=== PATIENT | male | born 1950 | race Caucasian/White ===

== ENCOUNTER 2020-09-17 12:26 | Outpatient (REF) | payer MEDICARE, SELFPAY ==
[2020-09-17 14:02] LABS: Glucose Urine UA NEG (NEG); Leukocyte Esterase Urine NEG (NEG); Nitrite Urine NEG (NEG); PH 6.5 (5.0-8.0); Specific Gravity - Urine <= 1.005 (1.005-1.025); Urine Blood NEG (NEG); Urine Ketones NEG (NEG); Urine Protein NEG (NEG-TRACE)
[2020-09-17 14:05] LABS: Creatinine Urine 71.71 mg/dL; Microalbum/Creatinine Ratio Ur 112.9 ug/mg cr
[2020-09-17 14:06] LABS: Appearance Urine CLEAR; Color Urine YELLOW
[2020-09-17 14:18] LABS: Alanine Aminotransferase 10 U/L (0-40); Albumin Level 4.4 g/dL (3.5-5.0); Alkaline Phosphatase 69 U/L (39-117); Anion Gap 12 (12-20); Aspartate Amino Transferase 16 U/L (5-37); Bilirubin Total 0.7 mg/dL (0.0-1.0); Blood Urea Nitrogen 17 mg/dL (9-16); Calcium 9.6 mg/dL (8.4-10.2); Carbon Dioxide 29 mmol/L (22-29); Chloride 99 mmol/L (96-108); Cholesterol 208 mg/dL; Estimated Glomerular Filt Rate > 60; Glucose Fasting 110 mg/dL (60-99); HDL Cholesterol 60 mg/dL; LDL Cholesterol Calculated 125 mg/dl; Potassium 5.3 mmol/L (3.3-5.1); Sodium 135 mmol/L (135-145); Total Protein 7.6 g/dL (6.5-8.0); Triglycerides 115 mg/dL
[2020-09-17 14:26] LABS: Prostate Specific Antigen Scr 0.24 ng/mL (<0.05-4.0); TSH reflex Free T4 2.29 uIU/mL (0.32-4.0)
== END 2020-09-17 12:27 | disposition home or self-care (01) ==
LOC: HO.WFDLDS 12:26
PROVIDERS: Visit Provider Family Medicine
DX: Z00.00 Encounter for general adult medical examination without abnormal findings (principal); Z12.5 Encounter for screening for malignant neoplasm of prostate; I10 Essential (primary) hypertension
CPT/HCPCS: 36415; 80053; 80061; 81003; 82043; 84153; 84443

== ENCOUNTER 2021-07-03 12:27 | Outpatient (REF) | payer MEDICARE, SELFPAY ==
[2021-07-03 14:01] LABS: MANUAL DIFF FLAG NO
[2021-07-03 14:05] LABS: Basophils Absolute Auto 0.1 X10*3/uL (0.0-0.2); Basophils Percent Auto 0.8 % (0-2); Eosinophils Absolute Auto 0.3 X10*3/uL (0.0-0.4); Eosinophils Percent Auto 4.2 % (0-4); Hematocrit 35.4 % (42.0-52.0); Hemoglobin 11.7 g/dl (14.0-18.0); Imm Gran Abs Auto 0.04 X10*3/uL (0.00-0.03); Imm Gran Pct Auto 0.5 % (0.0-0.4); Lymphocytes Absolute Auto 1.8 X10*3/uL (1.2-4.9); Lymphocytes Percent Auto 24.4 % (20-40); Mean Corpuscular HGB Conc 33.1 g/dl (31.0-36.0); Mean Corpuscular Hemoglobin 29.7 pg (27.0-33.0); Mean Corpuscular Volume 89.8 fL (80.0-98.0); Mean Platelet Volume 9.8 fL (9.4-12.4); Monocytes Absolute Auto 0.6 X10*3/uL (0.1-1.2); Monocytes Percent Auto 7.9 % (2-11); Neutrophils Absolute Auto 4.6 x10*3/uL (2.0-8.3); Neutrophils Percent Auto 62.2 % (45-73); Platelet Count 270 X10*3/uL (160-400); Red Blood Count 3.94 X10*6/uL (4.60-5.80); White Blood Count 7.4 X10*3/uL (4.8-10.8)
[2021-07-03 14:25] LABS: Alanine Aminotransferase 10 U/L (0-40); Albumin Level 3.7 g/dL (3.5-5.0); Alkaline Phosphatase 62 U/L (39-117); Anion Gap 12 (12-20); Aspartate Amino Transferase 13 U/L (5-37); Bilirubin Total 0.5 mg/dL (0.0-1.0); Blood Urea Nitrogen 17 mg/dL (9-16); Calcium 9.7 mg/dL (8.4-10.2); Carbon Dioxide 29 mmol/L (22-29); Chloride 102 mmol/L (96-108); Estimated Glomerular Filt Rate > 60; Glucose Random 140 mg/dL (60-115); Potassium 4.8 mmol/L (3.3-5.1); Rheumatoid Factor < 15.0 IU/mL (<15.0); Sodium 138 mmol/L (135-145); Total Protein 6.9 g/dL (6.5-8.0)
[2021-07-03 14:42] LABS: Erythrocyte Sedimentation Rate 67 MM/HR (0-15)
[2021-07-05 11:40] LABS: CRP High Sensitivity >10.0 mg/L
[2021-07-07 11:06] LABS: Cyclic Citrullinated Peptide 30 UNITS
[2021-07-08 09:52] LABS: Anti Nuclear Antibody Screen POSITIVE (NEGATIVE)
== END 2021-07-03 12:28 | disposition home or self-care (01) ==
LOC: HO.WFDLDS 12:27
PROVIDERS: Visit Provider Family Medicine
DX: Z00.00 Encounter for general adult medical examination without abnormal findings (principal); M79.10 Myalgia, unspecified site
CPT/HCPCS: 36415; 80053; 82550; 84443; 85025; 85652; 86038; 86039; 86141; 86200; 86431

== ENCOUNTER 2021-10-06 13:11 | Outpatient (REF) | payer MEDICARE, SELFPAY ==
--- NOTE | ~2021-10-06 | US_ITS ---
EXAMINATION: US VENOUS ULTRASOUND WITH DOPPLER LOWER EXTREMITY, BILATERAL CLINICAL INFORMATION: Pain. COMPARISON: None TECHNIQUE: Ultrasound of the deep veins is performed from the hip to the calf with compression sonography and color and pulse Doppler assessment. Spectral analysis with color-flow imaging is performed. FINDINGS: RIGHT: There is normal venous compression and respiratory variation and augmented flow. The visualized common femoral vein, superficial femoral vein, profunda femoral vein, popliteal vein, and the trifurcation region shows no evidence of deep venous thrombosis. There is no significant popliteal fossa cyst. LEFT: There is normal venous compression and respiratory variation and augmented flow. The visualized common femoral vein, superficial femoral vein, profunda femoral vein, popliteal vein, and the trifurcation region shows no evidence of deep venous thrombosis. There is no significant popliteal fossa cyst. If the patient's symptoms persist, followup ultrasound in 5 days 7 days might be of value to exclude proximal propagation from a non-visualized calf vein. US/US venous duplex LE BI IMPRESSION: No DVT demonstrated in the bilateral lower extremities.
== END 2021-10-06 13:12 | disposition home or self-care (01) ==
LOC: HO.US 13:11
PROVIDERS: PCP Family Medicine; Visit Provider Nurse Practitioner Family
DX: M79.661 Pain in right lower leg (principal); M79.662 Pain in left lower leg; M54.50 Low back pain, unspecified; R79.82 Elevated C-reactive protein (CRP); R25.1 Tremor, unspecified; Z79.899 Other long term (current) drug therapy
CPT/HCPCS: 93970; 99202

== ENCOUNTER 2021-12-31 12:24 | Outpatient (REF) | payer MEDICARE, SELFPAY ==
[2021-12-31 14:55] LABS: Rheumatoid Factor < 15.0 IU/mL (<15.0)
[2021-12-31 15:00] LABS: Erythrocyte Sedimentation Rate 66 MM/HR (0-15)
[2022-01-02 15:07] LABS: CRP High Sensitivity >10.0 mg/L
[2022-01-05 12:57] LABS: Cyclic Citrullinated Peptide 20 UNITS
== END 2021-12-31 12:25 | disposition home or self-care (01) ==
LOC: HO.WFDLDS 12:24
PROVIDERS: Visit Provider Family Medicine
DX: M79.10 Myalgia, unspecified site (principal)
CPT/HCPCS: 36415; 85652; 86141; 86200; 86431

== ENCOUNTER 2022-03-05 08:55 | Outpatient (REF) | payer MEDICARE, SELFPAY ==
[2022-03-05 11:14] LABS: MANUAL DIFF FLAG NO
[2022-03-05 11:38] LABS: Basophils Absolute Auto 0.1 X10*3/uL (0.0-0.2); Basophils Percent Auto 0.7 % (0-2); Eosinophils Absolute Auto 0.5 X10*3/uL (0.0-0.4); Eosinophils Percent Auto 5.8 % (0-4); Hematocrit 31.9 % (42.0-52.0); Hemoglobin 10.7 g/dl (14.0-18.0); Imm Gran Abs Auto 0.03 X10*3/uL (0.00-0.03); Imm Gran Pct Auto 0.4 % (0.0-0.4); Lymphocytes Absolute Auto 1.5 X10*3/uL (1.2-4.9); Lymphocytes Percent Auto 18.6 % (20-40); Mean Corpuscular HGB Conc 33.5 g/dl (31.0-36.0); Mean Corpuscular Hemoglobin 27.9 pg (27.0-33.0); Mean Corpuscular Volume 83.3 fL (80.0-98.0); Mean Platelet Volume 9.3 fL (9.4-12.4); Monocytes Absolute Auto 0.8 X10*3/uL (0.1-1.2); Monocytes Percent Auto 9.5 % (2-11); Neutrophils Absolute Auto 5.4 x10*3/uL (2.0-8.3); Platelet Count 317 X10*3/uL (160-400); Red Blood Count 3.83 X10*6/uL (4.60-5.80); Red Cell Distribution Width 13.8 % (11.0-16.0); White Blood Count 8.2 X10*3/uL (4.8-10.8)
[2022-03-05 11:39] LABS: Appearance Urine Clear; Color Urine Yellow; Glucose Urine UA Negative (Negative); Leukocyte Esterase Urine Negative (Negative); Nitrite Urine Negative (Negative); PH 6.5 (5.0-9.0); Specific Gravity - Urine 1.015 (1.005-1.025); UMIC TRIGGER UA YES; Urine Blood Negative (Negative); Urine Ketones Negative (Negative); Urine Protein 100 (2+) mg/dL (Neg-Trace)
[2022-03-05 11:48] LABS: Bacteria Urine None Seen (None Seen); Hyaline Casts Urine 0-2 /LPF (0-2); RBC Urine 0-2 /HPF (0-2); Squamous Epithelial Cell Urine 0-2 /HPF (0-2); WBC Urine 0-5 /HPF (0-5)
[2022-03-05 12:16] LABS: Creatinine Urine 62.23 mg/dL
[2022-03-05 14:04] LABS: Alanine Aminotransferase 13 U/L (0-40); Albumin Level 3.8 g/dL (3.5-5.0); Alkaline Phosphatase 62 U/L (39-117); Anion Gap 12 (12-20); Aspartate Amino Transferase 14 U/L (5-37); Bilirubin Total 0.4 mg/dL (0.0-1.0); Blood Urea Nitrogen 21 mg/dL (9-16); Calcium 9.4 mg/dL (8.4-10.2); Carbon Dioxide 29 mmol/L (22-29); Chloride 99 mmol/L (96-108); Cholesterol 190 mg/dL; Estimated Glomerular Filt Rate > 60; Glucose Fasting 107 mg/dL (60-99); HDL Cholesterol 46 mg/dL; LDL Cholesterol Calculated 127 mg/dl; Potassium 4.6 mmol/L (3.3-5.1); Prostate Specific Antigen Scr 0.31 ng/mL (<0.05-4.0); Sodium 135 mmol/L (135-145); TSH reflex Free T4 3.08 uIU/mL (0.32-4.0); Total Protein 6.9 g/dL (6.5-8.0); Triglycerides 86 mg/dL
== END 2022-03-05 08:56 | disposition home or self-care (01) ==
LOC: HO.WFDLDS 08:55
PROVIDERS: Visit Provider Family Medicine
DX: Z00.00 Encounter for general adult medical examination without abnormal findings (principal); Z12.5 Encounter for screening for malignant neoplasm of prostate; I10 Essential (primary) hypertension
CPT/HCPCS: 36415; 80053; 80061; 81001; 82043; 84153; 84443; 85025

== ENCOUNTER 2023-06-04 09:01 | Outpatient (AMB) | payer MEDICARE, SELFPAY ==
[2023-06-04 09:03] VITALS: BP 142/86; PULSE 67; O2SAT 97; BMI 33.4
--- NOTE | 2023-06-04 09:03 | MHC.OFFWIV ---
Intake Vital Signs 06/04/23 09:03 Height 5 ft 9 in Weight 226 lb 8 oz BMI 33.4 BP 142/86 H Blood Pressure Location Rt brachial Position Sitting Pulse 67 Pulse Source Pulse Oximeter Pulse Oximetry (%) 97 Oxygen Delivery Method Room Air Intake Visit Reasons: L Heel pain Intake Note: Pt presents to the office today for left heel pain that started about 2 weeks ago without any known injury. Pt states its a little swollen, and very painful. Patient Tobacco Use Status: Current everyday Tobacco user Allergies Sulfacet-R Allergy (Unknown, Uncoded 06/04/23 09:06) sick stomach HPI L Heel pain HPI Details 73 y/o male presents today with complaints of L heel pain. Swelling on bilateral lower extremities. Pt states pain started about 2x weeks ago without any known injury. [facility] Surgical History History of tonsillectomy Social History (Updated 06/04/23 @ 09:08 by Melissa Plata MA) Housing: Apartment Alcohol intake: current Alcohol intake frequency: a few times a month Alcohol type: beer Patient Tobacco Use Status: Current everyday Tobacco user Tobacco use type: Cigarette Cigarettes Per Day: 30 e-Cigarette/Vaping Use: Never Used Second Hand Smoke Exposure: No service: No Current occupational status: retired Current occupational exposures/hazards: No Review of Systems Const Denies chills, Denies fatigue, Denies fever(s), Denies headache(s) and Denies weakness ENT Denies dizziness and Denies headache(s) Card Denies dyspnea Resp Denies cough, Denies dyspnea, Denies wheezing and Denies other (shortness of breath) Musc Denies numbness and Denies tingling Neuro Denies dizziness, Denies headache(s), Denies numbness, Denies tingling and Denies weakness Psych Denies anxiety and Denies depression Endo Denies fatigue Aller/Immun Denies wheezing Physical Exam Vital Signs: Last Vital Signs Pulse 67 06/04/23 09:03 BP 142/86 H 06/04/23 09:03 Pulse Ox 97 06/04/23 09:03 Oxygen Delivery Method Room Air 06/04/23 09:03 BMI result Body Mass Index 33.4 Const General: well developed; No acute distress Nutritional Appearance: well nourished Orientation/consciousness: patient oriented x3 HEENT Head: Yes normocephalic and Yes atraumatic Eyes General: appearance normal, both eyes and all related structures Pupils: Equal, round and reactive pupils present EOM: EOMs intact bilaterally Resp Effort & Inspection: normal respiratory effort Neuro General: patient oriented x3 and gait normal Cranial nerves: Yes Equal, round and reactive pupils present Extrem Other: LE edema bilateral Psych Affect: normal affect Assessment & Plan Assessment & Plan (1) Cellulitis of left foot: Code(s): L03.116 - Cellulitis of left lower limb Plan: Mild/early?cellulitis?at?left?heel?and?foot Start?cephalexin Elevate?leg Check?x-ray Will?follow-up?in?1?week?to?ensure?healing (2) Foot pain: Code(s): M79.673 - Pain in unspecified foot Plan: As?above (3) Wound of skin: Code(s): T14.8XXA - Other injury of unspecified body region, initial encounter Plan: 1?cm?excoriation/wound?on?posterior?heel Can?use?triple?antibiotic?ointment?and?Band-Aid Treating?surrounding?cellulitis?with?antibiotic?as?above.??Will?follow-up?in?a?week (4) Swelling of lower extremity: Code(s): M79.89 - Other specified soft tissue disorders Plan: Bilateral?lower?extremity?edema Will?give?him?a?short?course?of?Lasix?x5?days Elevate?legs Has?follow-up?for?1?week?due?to?cellulitis?and?we?can?see?how?his?edema?is?at?that?time (5) Acute adjustment disorder: Code(s): F43.20 - Adjustment disorder, unspecified Plan: Patient's???about?6?months?ago.??He?is?appropriately?still?feeling?lonely?and?sad. Offered?referral?to?therapist?but?he?declines?at?this?time.??I?let?him?know?that?he?can?change?his?mind?at?any?time. (6) Pain of left heel: Code(s): M79.672 - Pain in left foot Plan: As?above (7) Nail overgrowth: Code(s): L60.2 - Onychogryphosis Plan: Patient?has?nail?overgrowth?of?all?nails?bilaterally. Had?been?seeing?a?flat optical element maker?for?this?but?he?says?the?flat optical element maker?is?too?far?away?now?and?he?has?limited?transportation. Will?try?to?make?a?referral?closer?to?home Orders: Orders XR foot LT min 3V Today M79.672 - Pain in left foot Referrals Podiatry Referral L60.2 - Onychogryphosis Medications: New furosemide 20 mg PO DAILY 5 tabs 0RF 5 days cephalexin 500 mg PO Q12H 20 caps 0RF 10 days Coding Level of Care Code Est Pt Level 4 (55729) Diagnoses Cellulitis of left foot L03.116 Foot pain M79.673 Wound of skin T14.8XXA Swelling of lower extremity M79.89 Acute adjustment disorder F43.20 Pain of left heel M79.672 Nail overgrowth L60.2
== END 2023-06-04 09:56 | disposition home or self-care (01) ==
PROVIDERS: PCP Family Medicine; Visit Provider Family Medicine
DX: L03.116 Cellulitis of left lower limb (principal); M79.673 Pain in unspecified foot; T14.8XXA Other injury of unspecified body region, initial encounter; M79.89 Other specified soft tissue disorders; F43.20 Adjustment disorder, unspecified; M79.672 Pain in left foot; L60.2 Onychogryphosis
CPT/HCPCS: 99214

== ENCOUNTER 2023-06-04 10:02 | Outpatient (REF) | payer MEDICARE, SELFPAY ==
[2023-06-04 11:29] LABS: MANUAL DIFF FLAG NO
[2023-06-04 11:33] LABS: Basophils Percent Auto 0.5 % (0-2); Eosinophils Absolute Auto 0.5 X10*3/uL (0.0-0.4); Eosinophils Percent Auto 6.5 % (0-4); Hematocrit 36.8 % (42.0-52.0); Hemoglobin 11.8 g/dl (14.0-18.0); Imm Gran Abs Auto 0.01 X10*3/uL (0.00-0.03); Imm Gran Pct Auto 0.1 % (0.0-0.4); Lymphocytes Absolute Auto 1.5 X10*3/uL (1.2-4.9); Lymphocytes Percent Auto 20.7 % (20-40); Mean Corpuscular HGB Conc 32.1 g/dl (31.0-36.0); Mean Corpuscular Hemoglobin 26.9 pg (27.0-33.0); Mean Corpuscular Volume 83.8 fL (80.0-98.0); Mean Platelet Volume 9.6 fL (9.4-12.4); Monocytes Absolute Auto 0.6 X10*3/uL (0.1-1.2); Monocytes Percent Auto 7.6 % (2-11); Neutrophils Absolute Auto 4.8 x10*3/uL (2.0-8.3); Neutrophils Percent Auto 64.6 % (45-73); Platelet Count 278 X10*3/uL (160-400); Red Blood Count 4.39 X10*6/uL (4.60-5.80); Red Cell Distribution Width 14.6 % (11.0-16.0); White Blood Count 7.4 X10*3/uL (4.8-10.8)
[2023-06-04 12:37] LABS: Anion Gap 10 (12-20); Blood Urea Nitrogen 16 mg/dL (9-16); Calcium 9.5 mg/dL (8.4-10.2); Carbon Dioxide 30 mmol/L (22-29); Chloride 104 mmol/L (96-108); Estimated Glomerular Filt Rate > 60; Glucose Random 101 mg/dL (60-115); Sodium 140 mmol/L (135-145); Uric Acid 5.8 mg/dL (3.4-7.0)
== END 2023-06-04 10:03 | disposition home or self-care (01) ==
LOC: HO.WFDLDS 10:02
PROVIDERS: Visit Provider Family Medicine
DX: Z00.00 Encounter for general adult medical examination without abnormal findings (principal); T14.8XXA Other injury of unspecified body region, initial encounter; M79.672 Pain in left foot; X58.XXXA Exposure to other specified factors, initial encounter; Y93.9 Activity, unspecified; Y92.9 Unspecified place or not applicable; Y99.9 Unspecified external cause status
CPT/HCPCS: 36415; 80048; 84550; 85025

== ENCOUNTER 2023-06-11 15:11 | Outpatient (AMB) | payer MEDICARE, SELFPAY ==
--- NOTE | 2023-06-11 15:19 | A.OFFPC_ITS ---
Vital Signs 06/11/23 15:22 Height 5 ft 9 in Weight 227 lb 6 oz BMI 33.6 BP 142/74 H Blood Pressure Location Lt brachial Position Sitting Pulse 62 Pulse Oximetry (%) 98 Oxygen Delivery Method Room Air Intake Visit Reasons: follow up heel infection Intake Note: Patient is here to follow up on heel infection today. Allergies Sulfacet-R Allergy (Unknown, Uncoded 06/04/23 09:06) sick stomach Tobacco use date assessed: 06/11/23 Fall risk assessment: No Falls in past year Last assessed Fall Risk: 06/11/23 Dental Screening Dental Screen Date: 06/11/23 Did you have a dental visit in the last 12 months?: Yes Did you have a dental problem in the last 6 months where you did not have access to dental care?: No Was dental information given to patient?: Patient declined HPI follow up heel infection HPI Details 73 y/o male presents to f/u heel infecti on. Infection seems to be improving. He does note lower extremity swelling and reports an itch. Blood pressure today elevated at 142/74. He is on atenolol 50mg and losartan 50mg daily. He notes he gets nervous about changing his blood pressure medications and would like to trial dietary changes first. [facility] Surgical History History of tonsillectomy Social History Housing: Apartment Alcohol intake: current Alcohol intake frequency: a few times a month Alcohol type: beer Patient Tobacco Use Status: Current everyday Tobacco user Tobacco use type: Cigarette Cigarettes Per Day: 15 e-Cigarette/Vaping Use: Never Used Second Hand Smoke Exposure: No service: No Current occupational status: retired Current occupational exposures/hazards: No Cognitive needs: No Hearing needs: No Vision needs: Yes (Patient wears glasses) Questionnaire PHQ-9 Over the last 2 weeks, how often have you been bothered by any of the following problems? 1. Little interest or pleasure in doing things: several days 2. Feeling down, depressed, or hopeless: not at all 3. Trouble falling or staying asleep, or sleeping too much: nearly every day 4. Feeling tired or having little energy: several days 5. Poor appetite or overeating: not at all 6. Feeling bad about yourself - or that you are a failure or have let yourself or your family down: not at all 7. Trouble concentrating on things, such as reading the newspaper or watching television: not at all 8. Moving or speaking so slowly that other people could have noticed. Or the opposite - being so fidgety or restless that you have been moving around a lot more than usual: not at all 9. Thoughts that you would be better off or of hurting yourself in some way: not at all Total score: 5 Depression Screening Interpretation: Negative Depression Screening Done: Yes Source: Developed by Drs. Harsh Casey, Corinne Monroe, Al Dennis and colleagues, with an educational oliva from [employer]. Thrive Questionnaire Date Thrive assessed: 06/11/23 I am a: Patient What is your living situation today?: I have a steady place to live Within the past 12 months, did the food you bought not last and you didn't have the money to get more?: Never true Within the past 12 months, did you worry whether your food would run out before you got money to buy more?: Never true Do you have trouble paying for medicines?: No Do you have trouble getting transportation to medical appointments?: No Do you have trouble paying your heating and electricity bill?: No Do you have trouble taking care of your child, family member or friend?: No Do you have trouble with day-to-day activities such as bathing, preparing meals, shopping, managing finances, etc.?: Yes Are you currently unemployed and looking for a job?: No Are you interested in more education?: No THRIVE Score: 0 AUDIT C Alcohol Use Questionnaire (AUDIT-C) 1. How often do you have a drink containing alcohol?: Monthly or less 2. How many drinks containing alcohol do you have on a typical day when you are drinking?: 1 or 2 3. How often do you have six or more drinks on one occasion?: Never Total Score: 1 OMAYRA-7 AMB Questionnaire OMAYRA-7 Date OMAYRA - 7 assessed: 06/11/23 Feeling nervous, anxious, or on edge: 0 = Not at all Not being able to stop or control worryin = Not at all Worrying too much about different things: 0 = Not at all Trouble relaxin = Not at all Being so restless that it is hard to sit still: 0 = Not at all Becoming easily annoyed or irritable: 0 = Not at all Feeling afraid as if something awful might happen: 0 = Not at all Total OMAYRA-7 score (0-4 normal; 5-9 mild; 10-14 moderate; 15-21 severe): 0 Source: Developed by Drs. Harsh Casey, Corinne Monroe, Al Dennis and colleagues, with an educational oliva from [employer]. Review of Systems Const Denies chills, Denies fatigue, Denies fever(s), Denies headache(s) and Denies weakness ENT Denies dizziness and Denies headache(s) Card Denies dyspnea Resp Denies cough, Denies dyspnea, Denies wheezing and Denies other (shortness of breath) Musc Denies numbness and Denies tingling Neuro Denies dizziness, Denies headache(s), Denies numbness, Denies tingling and Denies weakness Psych Denies anxiety and Denies depression Endo Denies fatigue Aller/Immun Denies wheezing Physical exam (Primary Care) Vital Signs: Last Vital Signs Pulse 62 06/11/23 15:22 BP 142/74 H 06/11/23 15:22 Pulse Ox 98 06/11/23 15:22 Oxygen Delivery Method Room Air 06/11/23 15:22 BMI result Body Mass Index 33.6 Tobacco/Smoking Status: Tobacco use Status Tobacco use date assessed 06/11/23 06/11/23 15:25 Patient Tobacco Use Status Current everyday Tobacco 06/11/23 15:21 Tobacco use type Cigarette 06/11/23 15:21 e-Cigarette/Vaping Use Never Used 06/11/23 15:21 PHQ-9: PHQ-9 Score PHQ-9: Total score 5 06/11/23 15:49 Depression Screening Interpretation: Negative Thrive Assessment: Date of Thrive Assessment Date Thrive assessed 06/11/23 06/11/23 15:32 Const General: well developed; No acute distress Nutritional Appearance: well nourished Orientation/consciousness: patient oriented x3 HENMT Head: Yes normocephalic and Yes atraumatic Eyes General: appearance normal, both eyes and all related structures Pupils: Equal, round and reactive pupils present EOM: EOMs intact bilaterally Resp Effort & Inspection: normal respiratory effort Neuro General: patient oriented x3 and gait normal Cranial nerves: Yes Equal, round and reactive pupils present Psych Affect: normal affect Assessment and Plan Assessment & Plan (1) Wound of skin: Code(s): T14.8XXA - Other injury of unspecified body region, initial encounter Plan: Improve X-ray?did?not?show?any?involvement?of?bone?he?will Finish?antibiotic Elevate?feet Dressing?changes Has?a?referral?to?Podiatry (2) Swelling of lower extremity: Code(s): M79.89 - Other specified soft tissue disorders Plan: Still?has?lower?extremity?edema?though?this?has?improved?with?a?short?course?of? furosemide.??Renal?function?is?okay Gave?him?a?script?for?furosemide?10?mg?daily Elevate?leg Avoid?salt/sodium (3) Essential hypertension: Code(s): I10 - Essential (primary) hypertension Plan: Blood?pressure?is?above?goal?of?less?than?140/90. Discussed?adjusting?his?blood?pressure?medications?today?but?patient?is?apprehen sive?about?this/declines?and?w ould?like?to?have?it?rechecked?again?at?his?upcoming?visit?next?week Watch?salt/sodium?in?diet.??No?medication?changes?today. Medications: New hydroxyzine HCl 25 mg PO BEDTIME 30 days 30 tabs 1RF Changed From furosemide 20 mg PO DAILY 5 days 5 tabs 0RF To furosemide 10 mg (1/2 x 20 mg) PO DAILY 30 days PRN 30 tabs 2RF edema Refilled atenolol 50 mg PO DAILY 90 days 90 tabs 2RF Coding Level of Care Code Est Pt Level 4 (70681) Diagnoses Wound of skin T14.8XXA Swelling of lower extremity M79.89 Essential hypertension I10
[2023-06-11 15:22] VITALS: BP 142/74; PULSE 62; O2SAT 98; BMI 33.6
== END 2023-06-11 15:58 | disposition home or self-care (01) ==
PROVIDERS: PCP Family Medicine; Visit Provider Family Medicine
DX: T14.8XXA Other injury of unspecified body region, initial encounter (principal); M79.89 Other specified soft tissue disorders; I10 Essential (primary) hypertension
CPT/HCPCS: 99214

== ENCOUNTER 2023-06-16 11:51 | Outpatient (AMB) | payer MEDICARE, SELFPAY ==
[2023-06-16 12:12] VITALS: BP 132/70; PULSE 63; RESP 14; TEMP 36.4; O2SAT 98; BMI 34.1
--- NOTE | 2023-06-16 12:12 | MHC.PC.OV ---
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 Also f/u heel wound. Labs were drawn 06/04/23. Reviewed labs with pt. Mild anemia. No lipid panel. He reports podiatry has not contacted him yet regarding his heel. Pt notes he continues smoking a pack and a half of cigarettes a day. [facility] Medical History (Updated 06/16/23 @ 12:17 by Odalys Jerome MA) No pertinent past medical history Surgical History History of tonsillectomy Social History Housing: Apartment Alcohol intake: current Alcohol intake frequency: a few times a month Alcohol type: beer Patient Tobacco Use Status: Current everyday Tobacco user Tobacco use type: Cigarette Cigarettes Per Day: 15 e-Cigarette/Vaping Use: Never Used Second Hand Smoke Exposure: No service: No Current occupational status: retired Current occupational exposures/hazards: No Cognitive needs: No Hearing needs: No Vision needs: Yes (Patient wears glasses) Questionnaire Thrive Questionnaire Date Thrive assessed: 06/11/23 AUDIT C Alcohol Use Questionnaire (AUDIT-C) 1. How often do you have a drink containing alcohol?: Monthly or less 2. How many drinks containing alcohol do you have on a typical day when you are drinking?: 1 or 2 3. How often do you have six or more drinks on one occasion?: Never Total Score: 1 OMAYRA-7 AMB Questionnaire OMAYRA-7 Date OMAYRA - 7 assessed: 06/11/23 Source: Developed by Drs. Harsh Casey, Corinne Monroe, Al Dennis and colleagues, with an educational oliva from [employer]. Review of Systems Const Denies chills, Denies fatigue, Denies fever(s), Denies headache(s) and Denies weakness Eyes Denies change in vision ENT Denies dizziness, Denies headache(s), Denies hearing loss, Denies nasal congestion, Denies sinus pain, Denies sinus pressure and Denies sore throat Card Denies chest pain, Denies lightheadedness, Denies dyspnea and Denies other (palpitations) Resp Denies cough, Denies dyspnea and Denies wheezing GI Denies abdominal pain, Denies melena, Denies hematochezia, Denies change in bowel habits, Denies dyspepsia and Denies nausea Denies hematuria and Denies dysuria Musc Denies abnormal gait, Denies myalgias, Denies arthralgias, Denies numbness and Denies tingling Skin/Breast Denies rash, Denies unusual bruising and Denies wounds Neuro Denies abnormal gait, Denies dizziness, Denies headache(s), Denies memory loss, Denies numbness, Denies Sensory deficit (Neuro), Denies tingling and Denies weakness Psych Denies anxiety, Denies depression and Denies memory loss Endo Denies cold intolerance, Denies fatigue, Denies heat intolerance, Denies polydipsia and Denies polyuria Dc/Lymph Denies easy bleeding and Denies easy bruising Aller/Immun Denies wheezing Physical exam (Primary Care) Vital Signs: Last Vital Signs Temp 97.6 F 06/16/23 12:12 Pulse 63 06/16/23 12:12 Resp 14 06/16/23 12:12 BP 132/70 06/16/23 12:12 Pulse Ox 98 06/16/23 12:12 Oxygen Delivery Method Room Air 06/16/23 12:12 BMI result Body Mass Index 34.1 Tobacco/Smoking Status: Tobacco use Status Tobacco use date assessed 06/11/23 06/16/23 12:20 Patient Tobacco Use Status Current everyday Tobacco 06/16/23 12:20 Tobacco use type Cigarette 06/16/23 12:20 e-Cigarette/Vaping Use Never Used 06/16/23 12:20 Thrive Assessment: Date of Thrive Assessment Date Thrive assessed 06/11/23 06/16/23 12:20 Const General: no acute distress, well developed, alert and awake Nutritional Appearance: well nourished Orientation/consciousness: patient oriented x3 HENMT Head: Yes normocephalic and Yes atraumatic Ears: hearing grossly normal bilaterally and TM's normal bilaterally General nose exam: Normal external nose present and Normal nares present Mouth: Normal oral and palatal mucosa present and moist mucous membranes Teeth and gingiva: dentition normal Throat: Yes posterior oropharynx normal Eyes General: appearance normal, both eyes and all related structures Pupils: Equal, round and reactive pupils present and Pupil accommodation reflex normal EOM: EOMs intact bilaterally Neck Neck: Yes normal visual inspection, Yes no lymphadenopathy and Yes trachea midline Thyroid: Thyroid normal Carotids: no bruits Lymphatic: no lymphadenopathy noted Chest Chest palpation & inspection: normal inspection of the chest Resp Other: Wheezing Effort & Inspection: normal respiratory effort Auscultation: clear to auscultation bilaterally Cardio Rate: regular rate Rhythm: regular rhythm Heart sounds: S1 normal heart sound present, S2 normal heart sound present, no gallops, no murmurs and no rubs Bruits: no abdominal aortic bruits and no carotid bruits GI Palpation (GI): No Abdominal aortic bruit present, Soft to palpation, nontender, No hepatosplenomegaly present and No Rebound tenderness present Auscultation: normal bowel sounds General: Yes no CVA tenderness Back/Spine/Pelvis Back: no CVA tenderness Cervical Spine: cervical ROM normal and No Cervical spine tenderness Thoracic/Lumbar Spine: thoraco-lumbar ROM normal, No pain with thoraco-lumbar ROM, No thoracic spinal tenderness and No lumbar spinal tenderness Skin Lesions: no lesions Rashes: no rashes Trauma: no lacerations or abrasions Wounds: no wounds Nails: normal Neuro General: patient oriented x3 Cranial nerves: Yes Equal, round and reactive pupils present Cognition (Neuro): normal cognition Gait exam (Neuro): Normal gait present Motor exam (neuro): 5/5 motor strength present throughout Sensory Exam: No Sensory deficit (Neuro) Deep tendon reflexes (DTR's): Right patellar reflex intensity grade: 2+ and Left patellar reflex intensity grade: 2+ Extrem General: Yes normal to inspection and No edema Psych Appearance: grossly normal Affect: normal affect Attitude: cooperative Thought process: Normal thought process present Assessment and Plan Assessment & Plan (1) Adult general medical exam: Code(s): Z00.00 - Encounter for general adult medical examination without abnormal findings Plan: 73-year-old?male?presents?for?complete?physical?exam Encouraged?healthy?diet?with?active?lifestyle?and?plenty?of?exercise (2) Essential hypertension: Code(s): I10 - Essential (primary) hypertension Plan: Blood?pressure?is?controlled.??Goal?is?less?than?140/90 (3) Anemia: Code(s): D64.9 - Anemia, unspecified Plan: Mild?anemia Will?follow (4) Swelling of lower extremity: Code(s): M79.89 - Other specified soft tissue disorders Plan: Much?improved?with?a?low?dose?of?furosemide Continue?furosemide?10?mg?daily (5) Wound of skin: Code(s): T14.8XXA - Other injury of unspecified body region, initial encounter Plan: Improving Has?referral?to?Podiatry (6) Smoker: Code(s): F17.200 - Nicotine dependence, unspecified, uncomplicated Plan: Smoking?1-1/2?packs?per?day Check?low-dose?CT?screening?for?lung?cancer Encouraged?weaning?and?cessation (7) Screening for colon cancer: Code(s): Z12.11 - Encounter for screening for malignant neoplasm of colon Plan: Cologuard?test?2?years?ago?was?negative Will?repeat?Cologuard?test?next?year (8) Screening for prostate cancer: Code(s): Z12.5 - Encounter for screening for malignant neoplasm of prostate Plan: Check?PSA Orders: Orders Complete Blood Count Auto Diff Today Z00.00 - Encounter for general adult medical examination without abnormal findings UA and rflx microscopic Today Z00.00 - Encounter for general adult medical examination without abnormal findings Microalbumin, Random (w Creat) Today I10 - Essential (primary) hypertension Prostate Specific Antigen Scr Today Z12.5 - Encounter for screening for malignant neoplasm of prostate Comprehensive [place]. Panel Fast Today Z00.00 - Encounter for general adult medical examination without abnormal findings TSH reflex Free T4 Today Z00.00 - Encounter for general adult medical examination without abnormal findings Lipid Panel Today Z00.00 - Encounter for general adult medical examination without abnormal findings Coding Level of Care Code Est Pt Level 3 (05048) Est Pt Prev Care >65y(30890) Diagnoses Adult general medical exam Z00.00 Essential hypertension I10 Anemia D64.9 Swelling of lower extremity M79.89 Wound of skin T14.8XXA Smoker F17.200 Screening for colon cancer Z12.11 Screening for prostate cancer Z12.5
== END 2023-06-16 13:13 | disposition home or self-care (01) ==
PROVIDERS: PCP Family Medicine; Visit Provider Family Medicine
DX: Z00.00 Encounter for general adult medical examination without abnormal findings (principal); I10 Essential (primary) hypertension; D64.9 Anemia, unspecified; M79.89 Other specified soft tissue disorders; T14.8XXA Other injury of unspecified body region, initial encounter; F17.210 Nicotine dependence, cigarettes, uncomplicated; Z12.11 Encounter for screening for malignant neoplasm of colon; Z12.5 Encounter for screening for malignant neoplasm of prostate
CPT/HCPCS: 99397

== ENCOUNTER 2023-07-16 07:53 | Outpatient (REF) | payer MEDICARE, SELFPAY ==
[2023-07-16 11:42] LABS: MANUAL DIFF FLAG NO
[2023-07-16 11:50] LABS: Basophils Absolute Auto 0.1 X10*3/uL (0.0-0.2); Basophils Percent Auto 0.7 % (0-2); Eosinophils Absolute Auto 0.4 X10*3/uL (0.0-0.4); Eosinophils Percent Auto 4.3 % (0-4); Hematocrit 37.6 % (42.0-52.0); Hemoglobin 11.9 g/dl (14.0-18.0); Imm Gran Abs Auto 0.03 X10*3/uL (0.00-0.03); Imm Gran Pct Auto 0.4 % (0.0-0.4); Lymphocytes Absolute Auto 1.9 X10*3/uL (1.2-4.9); Lymphocytes Percent Auto 23.1 % (20-40); Mean Corpuscular HGB Conc 31.6 g/dl (31.0-36.0); Mean Corpuscular Hemoglobin 26.2 pg (27.0-33.0); Mean Corpuscular Volume 82.8 fL (80.0-98.0); Mean Platelet Volume 9.6 fL (9.4-12.4); Monocytes Absolute Auto 0.6 X10*3/uL (0.1-1.2); Monocytes Percent Auto 7.6 % (2-11); Neutrophils Absolute Auto 5.3 x10*3/uL (2.0-8.3); Neutrophils Percent Auto 63.9 % (45-73); Platelet Count 291 X10*3/uL (160-400); Red Blood Count 4.54 X10*6/uL (4.60-5.80); Red Cell Distribution Width 14.7 % (11.0-16.0); White Blood Count 8.2 X10*3/uL (4.8-10.8)
[2023-07-16 11:50] LABS: Appearance Urine Clear; Color Urine Yellow; Glucose Urine UA Negative (Negative); Leukocyte Esterase Urine Negative (Negative); Nitrite Urine Negative (Negative); UMIC TRIGGER UA YES; Urine Blood Negative (Negative); Urine Ketones Negative (Negative); Urine Protein 300 (3+) mg/dL (Neg-Trace)
[2023-07-16 11:52] LABS: Bacteria Urine None Seen (None Seen); Hyaline Casts Urine 0-2 /LPF (0-2); RBC Urine 0-2 /HPF (0-2); Squamous Epithelial Cell Urine 0-2 /HPF (0-2); WBC Urine 0-5 /HPF (0-5)
[2023-07-16 12:50] LABS: Creatinine Urine 43.83 mg/dL
[2023-07-16 12:56] LABS: Alanine Aminotransferase 10 U/L (0-40); Albumin Level 3.7 g/dL (3.5-5.0); Alkaline Phosphatase 71 U/L (39-117); Anion Gap 12 (12-20); Aspartate Amino Transferase 14 U/L (5-37); Bilirubin Total 0.4 mg/dL (0.0-1.0); Blood Urea Nitrogen 20 mg/dL (9-16); Calcium 9.7 mg/dL (8.4-10.2); Carbon Dioxide 30 mmol/L (22-29); Chloride 101 mmol/L (96-108); Cholesterol 218 mg/dL (<200); Estimated Glomerular Filt Rate > 60; Glucose Fasting 109 mg/dL (60-99); HDL Cholesterol 57 mg/dL (>40); LDL Cholesterol Calculated 137 mg/dL (<100); Potassium 4.3 mmol/L (3.3-5.1); Sodium 139 mmol/L (135-145); Triglycerides 121 mg/dL (<150)
[2023-07-16 13:13] LABS: TSH reflex Free T4 2.74 uIU/mL (0.32-4.0)
== END 2023-07-16 07:54 | disposition home or self-care (01) ==
LOC: HO.WFDLDS 07:53
PROVIDERS: Visit Provider Family Medicine
DX: Z00.00 Encounter for general adult medical examination without abnormal findings (principal); Z12.5 Encounter for screening for malignant neoplasm of prostate; I10 Essential (primary) hypertension
CPT/HCPCS: 36415; 80053; 80061; 81001; 82043; 82570; 84153; 84443; 85025

== ENCOUNTER 2023-07-29 13:19 | Outpatient (AMB) | payer MEDICARE, SELFPAY ==
--- NOTE | 2023-07-29 09:01 | A.OFFVIS_ITS ---
Intake Visit Reasons: Current Smoker Allergies Sulfacet-R Allergy (Unknown, Uncoded 07/14/23 15:22) sick stomach HPI HPI Current Smoker: Details: Initial telehealth visit for this 73yo smoker with a 70+PYH. Patient has been smoking since age 15 for 58 years at 1.5ppd. . Denies marijuana use. Denies second hand smoke exposure. Denies exposure to chemicals or substances like asbestos. . Denies known family history of lung cancer. Denies personal history of cancers. Denies chest CT in last year. . Denies recent travel outside the [place]. Denies recent respiratory illness or recent hospitalization for respiratory issu es. Denies testing positive for COVID. Admits receiving COVID Vaccine. x 1. . Denies fever, chills, new/worsening cough, hemoptysis, hoarseness or dysphagia. Denies significant chest pain, significant dyspnea or unintentional weight loss. Patient Lung Cancer Screening Questionnaire reviewed with patient by provider. . Shared Decision Making Completed. Patient meets criteria. Discussed in detail with patient, the risk vs benefit of LDCT screening. Patient consents to proceed with scan. Discussed smoking cessation. [facility] Medical History (Updated 07/29/23 @ 10:54 by Mag Garcia PA-C) Anemia Acute adjustment disorder Essential hypertension Swelling of lower extremity Elevated fasting blood sugar Nicotine dependence, cigarettes, uncomplicated Surgical History History of tonsillectomy Social History (Updated 07/29/23 @ 10:53 by Mag Garcia PA-C) Housing: Apartment Alcohol intake: current Alcohol intake frequency: a few times a month Alcohol type: beer Patient Tobacco Use Status: Current everyday Tobacco user Tobacco use type: Cigarette Years Smoked: (onset 15yo, 1.5ppd x 58yrs, 70+PYH) e-Cigarette/Vaping Use: Never Used Second Hand Smoke Exposure: No service: No Current occupational status: retired Current occupational exposures/hazards: No Cognitive needs: No Hearing needs: No Vision needs: Yes (Patient wears glasses) Telehealth Telehealth Telehealth Platform: Telephone Location of provider rendering services: practice address Location of patient: address on file Patient Identification confirmed using: Name, : Yes Telehealth method: voice only Patient verbally consented to treatment: Yes Patient verbally consented to billing insurance company: Yes Patient informed of any privacy concerns related to visit: Yes Minutes spent on Phone/Video with Pt.: 15 Assessment & Plan Assessment & Plan (1) Nicotine dependence, cigarettes, uncomplicated: Comment: (current smoker -onset 15yo, 1.5ppd x 58yrs, 70+PYH) Code(s): F17.210 - Nicotine dependence, cigarettes, uncomplicated Category: Medical Plan: - SDM visit completed today in office. - Patient meets criteria for LDCT for lung cancer screening purposes and is asymptomatic. - Smoking cessation counseling offered. Patients can always call [phone]. - Will arrange for a LDCT scan of the chest for screening purposes at [facility]. - Risks, benefits, and alternatives were discussed in detail and the patient agrees to proceed. - Risks discussed include but are not limited to: radiation exposure, anxiety during testing and while awaiting results, false negatives, false positives and possibility of additional intervention such as further imaging or surgical procedures for benign disease. - Benefits are obviously detection of lung cancer at an early stage which can lead to improved outcomes. - Discussed the importance of screening program compliance with adherence to yearly LDCT scan as scheduled - or sooner interval scans for personalized screening regimen. - Discussed follow up plan. Our office will send a letter discussing results and if needed set up phone call and office visit based on CT findings. - Patient educated on results categorization and the management decisions for suspicious findings potentially found on the screening LDCT scan. Any patient with a Lung RADS score of 3 or 4 will be reviewed by a multidisciplinary team at [facility] to form a plan of action in regards to scan findings. - If further work up is warranted for a suspicious lung finding this will be followed by the Lung Cancer Screening program in conjunction with the Thoracic Surgery Department at [facility]. - A copy of the office note and LDCT will be sent to the patient's PCP - as well as documentation on any associated further plans of care. - Incidental findings on LDCT are the PCP's responsibility. These findings are indicated with an S finding on the LDCT Assessment. A note discussing the findings will be sent to the PCP who is then responsible for further management. - All questions answered.? Plan - SDM visit completed today via phone. - Patient meets criteria for LDCT for lung cancer screening purposes and is asymptomatic. - Smoking cessation counseling offered. Patients can always call [phone]. - Will arrange for a LDCT scan of the chest for screening purposes at [facility]. - Risks, benefits, and alternatives were discussed in detail and the patient agrees to proceed. - Risks discussed include but are not limited to: radiation exposure, anxiety during testing and while awaiting results, false negatives, false positives and possibility of additional intervention such as further imaging or surgical procedures for benign disease. - Benefits are obviously detection of lung cancer at an early stage which can lead to improved outcomes. - Discussed the importance of screening program compliance with adherence to yearly LDCT scan as scheduled - or sooner interval scans for personalized screening regimen. - Discussed follow up plan. Our office will send a letter discussing results and if needed set up phone call and office visit based on CT findings. - Patient educated on results categorization and the management decisions for suspicious findings potentially found on the screening LDCT scan. Any patient with a Lung RADS score of 3 or 4 will be reviewed by a multidisciplinary team at [facility] to form a plan of action in regards to scan findings. - If further work up is warranted for a suspicious lung finding this will be followed by the Lung Cancer Screening program in conjunction with the Thoracic Surgery Department at [facility]. - A copy of the office note and LDCT will be sent to the patient's PCP - as well as documentation on any associated further plans of care. - Incidental findings on LDCT are the PCP's responsibility. These findings are indicated with an S finding on the LDCT Assessment. A note discussing the findings will be sent to the PCP who is then responsible for further management. - All questions answered.? Coding Level of Care Code Lung Cancer Screening G0296 Diagnoses Nicotine dependence, cigarettes, uncomplicated F17.210
== END 2023-07-29 13:21 | disposition home or self-care (01) ==
LOC: HO.HMS 13:19
PROVIDERS: PCP Family Medicine; Referring Provider Family Medicine; Visit Provider Physician Assistant Medical
DX: F17.210 Nicotine dependence, cigarettes, uncomplicated (principal)
CPT/HCPCS: G0296

== ENCOUNTER → 2023-07-29 13:19 | Outpatient (BNVA) | payer MEDICARE, SELFPAY | PROVIDERS: PCP Family Medicine; Visit Provider Physician Assistant Medical | DX: F17.210 Nicotine dependence, cigarettes, uncomplicated (principal) | CPT/HCPCS: G0296 ==

== ENCOUNTER 2023-07-30 10:06 | Outpatient (REF) | payer MEDICARE, SELFPAY ==
--- NOTE | ~2023-07-30 | CT_ITS ---
EXAMINATION: CT LOW-DOSE SCREENING CHEST WITHOUT CONTRAST CLINICAL INFORMATION: Nicotine dependence, cigarettes, uncomplicated. The patient is a current smoker with a 58 pack-year history of smoking. COMPARISON: None available. TECHNIQUE: Multidetector volumetric CT imaging of the chest is performed on a Siemens SOMATOM Definition scanner without contrast using low dose technique. Additional 2D coronal and sagittal reformatted images and axial 3D maximum intensity projection (MIP) images are generated on the CT workstation. This CT examination was performed using dose optimization techniques as appropriate, variously including the following: *Automated exposure control *Adjustment of mA and/or kV according to patient size (this includes techniques or standardized protocols for targeted exams where dose is matched to indication/reason for exam; i.e. extremities or head) *Use of iterative reconstruction technique TOTAL EXAM DLP: 82 mGy-cm. CTDIvol: 2.16 mGy. FINDINGS: PULMONARY NODULES: No suspicious pulmonary nodules. Single tiny punctate 2 mm subpleural left lower lobe nodule (5:333). LUNGS: Lungs bilaterally symmetrically expanded. Minimal emphysematous changes are present along with bronchial thickening. No effusion or pneumothorax. Central airways patent. MEDIASTINUM: No mediastinal, hilar or axillary adenopathy or free fluid collection. CORONARY ARTERY CALCIFICATION: Moderate. THYROID GLAND: Unremarkable to the extent seen. CARDIOVASCULAR STRUCTURES: Aortic and heart size normal. No pericardial effusion. CHEST WALL/AXILLA: Unremarkable. UPPER ABDOMEN: Included portions of the solid organs in the upper abdomen unremarkable on noncontrast imaging. There is a 5.7 cm benign simple cyst in the right lobe of the liver just below the dome of the hemidiaphragm. There is a small punctate calcification seen in the wall of the gallbladder (3:65). If gallbladder disease is a consideration recommend right upper quadrant ultrasound. Mild thickening of the left adrenal gland measures -13 Hounsfield units and is a benign finding which needs no additional imaging or followup. OSSEOUS STRUCTURES: No suspicious focal findings. CT/CT lung screening IMPRESSION: No evidence of malignancy. ASSESSMENT: 1. Lung-RADS Category 2: Benign appearance or behavior of nodules. N/A. 2. Lung-RADS Category S: Negative. There are no clinically significant or potentially clinically significant findings not related to the lungs requiring urgent additional evaluation. RECOMMENDATION: Continued routine annual low-dose CT lung screening in 1 year is recommended. An order for CT CHEST LOW DOSE CANCER SCREENING ([id number]) can be placed.
== END 2023-07-30 10:07 | disposition home or self-care (01) ==
LOC: HO.CT 10:06
PROVIDERS: PCP Family Medicine; Visit Provider Physician Assistant Medical
DX: Z12.2 Encounter for screening for malignant neoplasm of respiratory organs (principal); F17.210 Nicotine dependence, cigarettes, uncomplicated
CPT/HCPCS: 71271

== ENCOUNTER 2024-06-21 11:17 | Outpatient (AMB) | payer MEDICARE, SELFPAY ==
--- NOTE | 2024-06-21 11:41 | A.OFFPC_ITS ---
Vital Signs 06/21/24 11:44 Height 5 ft 9 in Weight 203 lb BMI 30.0 BP 120/64 Blood Pressure Location Rt brachial Position Sitting Respiration 16 Pulse 50 Pulse Source Pulse Oximeter Temp 97.3 F Temp Source Oral Pulse Oximetry (%) 96 Oxygen Delivery Method Room Air Intake Visit Reasons: Pt. is experiencing dizziness. Intake Note: patient is schedule for dizziness he stated the cause could have been due to him not taking his b/p medication for a while Allergies Sulfacet-R Allergy (Unknown, Uncoded 08/13/23 11:22) sick stomach Medication List - Last Reconciled 06/21/24 by Fab Vale MD atenolol 50 mg PO DAILY 90 days furosemide 10 mg (1/2 x 20 mg) PO DAILY PRN 30 days hydroxyzine HCl 25 mg PO BEDTIME 30 days ibuprofen 600 mg PO Q8H PRN 30 days losartan 50 mg PO DAILY Tobacco use date assessed: 06/11/23 Dental Screening Dental Screen Date: 06/16/23 HPI Pt. is experiencing dizziness. HPI Details 74 y/o male presents today with complain ts of dizziness. Pt notes episode of dizziness that lasted for about a month. Denies any sensation of the room spinning. He had noted lightheadness. Denies chest pain, shortness of breath. [facility] Medical History (Updated 06/21/24 @ 12:36 by Fab Vale MD) Acute adjustment disorder Essential hypertension Hyperlipidemia Elevated fasting blood sugar Anemia Swelling of lower extremity Nicotine dependence, cigarettes, uncomplicated Surgical History History of tonsillectomy Social History Housing: Apartment Alcohol intake: current Alcohol intake frequency: a few times a month Alcohol type: beer Patient Tobacco Use Status: Current everyday Tobacco user Tobacco use type: Cigarette Years Smoked: (onset 15yo, 1.5ppd x 58yrs, 70+PYH) e-Cigarette/Vaping Use: Never Used Second Hand Smoke Exposure: No service: No Current occupational status: retired Current occupational exposures/hazards: No Cognitive needs: No Hearing needs: No Vision needs: Yes (Patient wears glasses) Questionnaire PHQ-9 Over the last 2 weeks, how often have you been bothered by any of the following problems? 1. Little interest or pleasure in doing things: not at all 2. Feeling down, depressed, or hopeless: not at all 3. Trouble falling or staying asleep, or sleeping too much: not at all 4. Feeling tired or having little energy: not at all 5. Poor appetite or overeating: not at all 6. Feeling bad about yourself - or that you are a failure or have let yourself or your family down: not at all 7. Trouble concentrating on things, such as reading the newspaper or watching television: not at all 8. Moving or speaking so slowly that other people could have noticed. Or the opposite - being so fidgety or restless that you have been moving around a lot more than usual: not at all 9. Thoughts that you would be better off or of hurting yourself in some way: not at all Total score: 0 Depression Screening Interpretation: Negative Depression Screening Done: Yes 63841 - PHQ-9 Billing: Yes Source: Developed by Drs. Harsh Casey, Al Jones and colleagues, with an educational oliva from [employer]. Thrive Questionnaire Date Thrive assessed: 06/11/23 OMAYRA-7 AMB Questionnaire OMAYRA-7 Date OMAYRA - 7 assessed: 06/21/24 Feeling nervous, anxious, or on edge: 0 = Not at all Not being able to stop or control worryin = Not at all Worrying too much about different things: 0 = Not at all Trouble relaxin = Not at all Being so restless that it is hard to sit still: 0 = Not at all Becoming easily annoyed or irritable: 0 = Not at all Feeling afraid as if something awful might happen: 0 = Not at all Total OMAYRA-7 score (0-4 normal; 5-9 mild; 10-14 moderate; 15-21 severe): 0 Source: Developed by Drs. Harsh Casey, Al Jones and colleagues, with an educational oliva from [employer]. OMAYRA-7 Assessment Billing OMAYRA-7 Assessment Tool: OMAYRA-7 Assessment 73483 Review of Systems Const Denies chills, Denies fatigue, Denies fever(s), Denies headache(s) and Denies weakness ENT Denies dizziness and Denies headache(s) Card Denies dyspnea Resp Denies cough, Denies dyspnea, Denies wheezing and Denies other (shortness of breath) Musc Denies numbness and Denies tingling Neuro Denies dizziness, Denies headache(s), Denies numbness, Denies tingling, Reports tremor(s) and Denies weakness Psych Denies anxiety and Denies depression Endo Denies fatigue Aller/Immun Denies wheezing Physical exam (Primary Care) Vital Signs: Last Vital Signs Temp 97.3 F 06/21/24 11:44 Pulse 50 06/21/24 11:44 Resp 16 06/21/24 11:44 BP 120/64 06/21/24 11:44 Pulse Ox 96 06/21/24 11:44 Oxygen Delivery Method Room Air 06/21/24 11:44 BMI result Body Mass Index 30.0 Tobacco/Smoking Status: Tobacco use Status Tobacco use date assessed 06/11/23 06/21/24 11:43 Patient Tobacco Use Status Current everyday Tobacco 06/21/24 11:43 Tobacco use type Cigarette 06/21/24 11:43 e-Cigarette/Vaping Use Never Used 06/21/24 11:43 PHQ-9: PHQ-9 Score PHQ-9: Total score 0 06/21/24 11:47 Depression Screening Interpretation: Negative Thrive Assessment: Date of Thrive Assessment Date Thrive assessed 06/11/23 06/21/24 11:43 Const General: well developed; No acute distress Nutritional Appearance: well nourished Orientation/consciousness: patient oriented x3 HENMT Head: Yes normocephalic and Yes atraumatic Eyes General: appearance normal, both eyes and all related structures Pupils: Equal, round and reactive pupils present EOM: EOMs intact bilaterally Resp Effort & Inspection: normal respiratory effort Neuro General: patient oriented x3 and gait normal Cranial nerves: Yes Equal, round and reactive pupils present Psych Affect: normal affect Coding Level of Care Code Est Pt Level 4 (31794) Diagnoses Dizziness R42 Essential hypertension I10 Tremor R25.1 Depression F32.A Additional Codes OMAYRA-7 Assessment Billing - OMAYRA-7 Assessment Tool: OMAYRA-7 Assessment 44798 ([id number]) PHQ-9 - 68450 - PHQ-9 Billing: Yes ([id number]) Assessment & Plan Assessment & Plan (1) Dizziness: Code(s): R42 - Dizziness and giddiness Category: Medical Plan: Patient?notes?some?recent?dizziness. Describes?as?a?lightheadedness?and?not?consistent?with?vertigo Patient?also?has?significant tremor?and?dyskinesia/choreiform?type?movements. Also?change?in?his?posture Also?worsening?of?gait.??Patient?is?using?a?cane?but?has wide?unsteady?gait Will?check?imaging?of?head/brain?and?refer?to?Neurology. (2) Essential hypertension: Code(s): I10 - Essential (primary) hypertension Category: Medical Plan: Blood?pressure?is?controlled.??Goal?is?less?than?140/90 Continue?her?medications EKG?shows?sinus?bradycardia?at?51?beats?per?minute?bu t?no?other?arrhythmia.??Left?bundle?branch?block. (3) Tremor: Code(s): R25.1 - Tremor, unspecified Category: Medical Plan: As?above (4) Depression: Code(s): F32.A - Depression, unspecified Category: Medical Plan: Ongoing?depressed?mood?and?sadness.??Patient?lost?his??in?late?2022. We?discu ssed?therapist?and?medication.??Patient?declines?these.??I?let?him?know?these?ar e?available Will?continue?to?monitor Orders: Orders Complete Blood Count Auto Diff Today R42 - Dizziness and giddiness, Z00.00 - Encounter for general adult medical examination without abnormal findings Syphilis Screen Today R42 - Dizziness and giddiness, Z11.3 - Encounter for screening for infections with a predominantly sexual mode of transmission Comprehensive Met. Panel Today R42 - Dizziness and giddiness TSH reflex Free T4 Today R42 - Dizziness and giddiness, Z00.00 - Encounter for general adult medical examination without abnormal findings UA CC w/rflx Micro + Cult Today R42 - Dizziness and giddiness, Z00.00 - Encounter for general adult medical examination without abnormal findings HIV Ab/Ag Today R42 - Dizziness and giddiness, Z11.3 - Encounter for screening for infections with a predominantly sexual mode of transmission Erythrocyte Sedimentation Rate Today R42 - Dizziness and giddiness CRP High Sensitivity Today R42 - Dizziness and giddiness MR head/brain wo con Today G24.9 - Dystonia, unspecified, R25.1 - Tremor, unspecified, R26.81 - Unsteadiness on feet, R41.82 - Altered mental status, unspecified, R42 - Dizziness and giddiness Referrals 2 Neurology Referral G24.9 - Dystonia, unspecified, R25.1 - Tremor, unspecified, R26.81 - Unsteadiness on feet, R42 - Dizziness and giddiness
[2024-06-21 11:44] VITALS: BP 120/64; PULSE 50; RESP 16; TEMP 36.3; O2SAT 96
== END 2024-06-21 12:28 | disposition home or self-care (01) ==
LOC: HO.HMCFM 11:18
PROVIDERS: PCP Family Medicine; Visit Provider Family Medicine
DX: R42 Dizziness and giddiness (principal); I10 Essential (primary) hypertension; R25.1 Tremor, unspecified; F32.A Depression, unspecified

== ENCOUNTER → 2024-06-21 11:17 | Outpatient (BNVA) | payer MEDICARE, SELFPAY | PROVIDERS: PCP Family Medicine; Visit Provider Family Medicine | DX: R42 Dizziness and giddiness (principal); R25.1 Tremor, unspecified; I10 Essential (primary) hypertension; F32.A Depression, unspecified | CPT/HCPCS: 96127; 99212 ==

== ENCOUNTER 2024-07-17 10:17 | Outpatient (AMB) | payer MEDICARE, SELFPAY ==
--- NOTE | 2024-07-17 10:32 | AM.OFFWIN_ITS ---
Intake Vital Signs 07/17/24 10:38 07/17/24 10:49 Height 5 ft 9 in Weight 203 lb BMI 30.0 BP 164/80 H 130/64 Blood Pressure Location Rt brachial Rt brachial Position Sitting Sitting Respiration 12 Pulse 67 Pulse Source Pulse Oximeter Temp 97.3 F Temp Source Oral Pulse Oximetry (%) 98 Oxygen Delivery Method Room Air Intake Visit Reasons: fell in bathroom on left side (possible xray) Intake Note: Patient c/o px on left side of his body, left side rib px and left lower side back px from a fall last . Patient Tobacco Use Status: Current everyday Tobacco user Allergies Sulfacet-R Allergy (Severe, Uncoded 07/17/24 10:46) sick stomach Medication List - Last Reconciled 07/17/24 by LANDRY Anderson- atenolol 50 mg PO DAILY 90 days furosemide 10 mg (1/2 x 20 mg) PO DAILY PRN 30 days hydroxyzine HCl 25 mg PO BEDTIME 30 days ibuprofen 600 mg PO Q8H PRN 30 days losartan 50 mg PO DAILY Do you need a note to return to daycare/school/sports/work: No HPI HPI Comments History of Present Illness Details [phone] - Preferred phone # History of Present Illness - The patient is a 74-year-old male pres enting with a fall leading to pain in the left ribs. - The fall occurred when the patient fel l asleep on the toilet; woke up, legs asleep, attempted to stand and fell backward, striking the toilet paper ortiz. - There was no head impact or loss of co nsciousness reported. - The patient experiences persistent rib pain, exacerbated by talking and coughing, and exhibits a bruise where he struck the toilet paper ortiz. - The patient reports constipation as a recurring issue, although urination is normal. - Blood pressure was elevated at the vis it following a missed dose of medication; otherwise, the patient's breathing is unaffected, except for discomfort noted when speaking. - Taking NSAID w/o relief. Physical Exam General: Well developed, well nourished, in no acute distress. Appears stated age. Head: Normocephalic, atraumatic. Lungs: Dim throughout Chest: No retractions or crepitus. Bruising noted on the posterior left ribs. Pain w/ palp over this area. Heart: Regular rate and rhythm. No murmurs, click, rubs or gallops are noted. Abdomen: Bowel sounds present in all quadrants. The abdomen is soft, nontender Discussion Notes During our conversation, I reviewed the situation surrounding the fall with the patient and discussed the necessity of conducting an X-ray to rule out the possibility of rib fractures. Given the discomfort and the injury's nature, I emphasized the importance of proper diagnosis and treatment. We explored options for obtaining the X-ray and I discussed potential treatment plans contingent on the X-ray results. I also highlighted the need for updating contact information to ensure timely communication of test results. I advised the patient to go to [facility] for the X-ray, ensuring rapid processing and consistency of results delivery. I assured the patient I would call with the results and prescribe analgesics accordingly. Assessment and Plan 1. Mechanical fall with injury The patient is instructed to undergo an X-ray to assess rib injury since he reports pain upon speaking and coughing. Pain management will be considered following evaluation of the X-ray results. 2. Elevated blood pressure The blood pressure elevation is linked to a missed dose of medication. The patient is advised to continue with his regular antihypertensive medication. Patient Instructions - Go to the [facility] for an X-ra y of your ribs and chest today. - Resume your regular blood pressure med ication regimen as soon as you get home. - Expect a call later today with the res ults of your X-ray. - Follow up at the listed pharmacy for a ny new prescriptions provided. Consent Patient was informed and verbally consented to the use of an ambient scribe for clinic note documentation during this visit. Total time spent caring for the patient today was 30 minutes. This includes time spent before the visit reviewing the chart, time spent during the visit, and time spent after the visit on documentation, reviewing laboratory results, diagnostic imaging, medications, performing a medically necessary evaluation, counseling on diagnoses, care coordination, ordering appropriate tests, ordering appropriate medications, review of tests performed by other providers, reporting test results with the patient, communication with other healthcare providers. [facility] Medical History (Updated 07/17/24 @ 11:00 by Radha Guadalupe, LANDRY-EDUARDO) Acute adjustment disorder Anemia Elevated fasting blood sugar Essential hypertension Hyperlipidemia Nicotine dependence, cigarettes, uncomplicated Swelling of lower extremity Surgical History History of tonsillectomy Social History Housing: Apartment Alcohol intake: current Alcohol intake frequency: a few times a month Alcohol type: beer Patient Tobacco Use Status: Current everyday Tobacco user Tobacco use type: Cigarette Years Smoked: (onset 15yo, 1.5ppd x 58yrs, 70+PYH) e-Cigarette/Vaping Use: Never Used Second Hand Smoke Exposure: No service: No Current occupational status: retired Current occupational exposures/hazards: No Cognitive needs: No Hearing needs: No Vision needs: Yes (Patient wears glasses) Physical Exam Vital Signs: Last Vital Signs Temp 97.3 F 07/17/24 10:38 Pulse 67 07/17/24 10:38 Resp 12 07/17/24 10:38 BP 164/80 H 07/17/24 10:38 Pulse Ox 98 07/17/24 10:38 Oxygen Delivery Method Room Air 07/17/24 10:38 BMI result Body Mass Index 30.0 Assessment & Plan Assessment & Plan (1) Fall: Code(s): W19.XXXA - Unspecified fall, initial encounter Qualifiers: Encounter type: initial encounter Qualified Code(s): W19.XXXA - Unsp ecified fall, initial encounter (2) Rib pain: Code(s): R07.81 - Pleurodynia (3) Essential hypertension: Code(s): I10 - Essential (primary) hypertension Plan . Orders: Orders XR ribs BI min 4V w CXR1V Today R07.81 - Pleurodynia, W19.XXXA - Unspecified fall, initial encounter Coding Level of Care Code Est Pt Level 4 (47928) Diagnoses Fall, initial encounter W19.XXXA Encounter type: initial encounter Rib pain R07.81 Essential hypertension I10
[2024-07-17 10:38] VITALS: BP 164/80; PULSE 67; RESP 12; TEMP 36.3; O2SAT 98
[2024-07-17 10:49] VITALS: BP 130/64
== END 2024-07-17 11:14 | disposition home or self-care (01) ==
LOC: HO.HMCFM 10:17
PROVIDERS: PCP Family Medicine; Visit Provider Nurse Practitioner Family
DX: R07.81 Pleurodynia (principal); W19.XXXA Unspecified fall, initial encounter; I10 Essential (primary) hypertension

== ENCOUNTER 2024-07-17 10:17 | Outpatient (REF) | payer MEDICARE, SELFPAY ==
--- NOTE | ~2024-07-17 | XR_ITS ---
EXAMINATION: XR RIBS, BILATERAL CLINICAL INFORMATION: W19.XXXA - Unspecified fall, initial encounter COMPARISON: None available. TECHNIQUE: 3 views of the bilateral ribs were obtained. FINDINGS: Lungs are clear. No consolidation, pneumothorax, or pleural effusion. The cardiomediastinal silhouette and pulmonary vasculature are normal. Acute minimally displaced fracture of the left lateral 10th rib. No definite additional fractures identified. XR/XR ribs BI min 4V w CXR1V IMPRESSION: Acute minimally displaced fracture left lateral 10th rib. Lungs are clear. No pneumothorax or effusion. Electronically signed by: Baltazar Gay MD 07/17/2024 12:07 PM EDT
[2024-07-17 14:07] LABS: MANUAL DIFF FLAG NO
[2024-07-17 14:12] LABS: Basophils Absolute Auto 0.1 X10*3/uL (0.0-0.2); Basophils Percent Auto 0.9 % (0-2); Eosinophils Absolute Auto 0.4 X10*3/uL (0.0-0.4); Eosinophils Percent Auto 6.4 % (0-4); Hematocrit 38.3 % (42.0-52.0); Hemoglobin 12.1 g/dl (14.0-18.0); Imm Gran Abs Auto 0.02 X10*3/uL (0.00-0.03); Imm Gran Pct Auto 0.3 % (0.0-0.4); Immature Retic Fraction 11.1 % (2.3-13.4); Lymphocytes Absolute Auto 1.7 X10*3/uL (1.2-4.9); Mean Corpuscular HGB Conc 31.6 g/dl (31.0-36.0); Mean Corpuscular Volume 82.4 fL (80.0-98.0); Mean Platelet Volume 9.8 fL (9.4-12.4); Monocytes Absolute Auto 0.5 X10*3/uL (0.1-1.2); Monocytes Percent Auto 7.1 % (2-11); Neutrophils Absolute Auto 4.1 x10*3/uL (2.0-8.3); Neutrophils Percent Auto 60.3 % (45-73); Platelet Count 260 X10*3/uL (160-400); Red Blood Count 4.65 X10*6/uL (4.60-5.80); Red Cell Distribution Width 15.4 % (11.0-16.0); Reticulocyte Percent 1.4 % (0.5-1.8); Reticulocytes Absolute 0.065 X10*6/uL (0.026-0.095); White Blood Count 6.9 X10*3/uL (4.8-10.8)
[2024-07-17 14:23] LABS: Estimated Average Glucose 114 mg/dL; Hemoglobin A1c % 5.6 % (<6.0); Total Hemoglobin (HGBA1C) 3233.2781 umol/L
[2024-07-17 14:27] LABS: Appearance Urine Clear; Color Urine Yellow; Glucose Urine UA Negative (Negative); Leukocyte Esterase Urine Negative (Negative); Nitrite Urine Negative (Negative); PH 5.5 (5.0-9.0); UMIC TRIGGER UACC YES; Urine Blood Negative (Negative); Urine Ketones Negative (Negative); Urine Protein 300 (3+) mg/dL (Neg-Trace)
[2024-07-17 14:44] LABS: Alanine Aminotransferase 6 U/L (0-40); Albumin Level 3.6 g/dL (3.5-5.0); Alkaline Phosphatase 75 U/L (39-117); Anion Gap 11 (12-20); Aspartate Amino Transferase 23 U/L (5-37); Bilirubin Total 0.4 mg/dL (0.0-1.0); Blood Urea Nitrogen 20 mg/dL (9-16); Calcium 9.2 mg/dL (8.4-10.2); Carbon Dioxide 29 mmol/L (22-29); Chloride 105 mmol/L (96-108); Cholesterol 209 mg/dL (<200); Estimated Glomerular Filt Rate > 60; Glucose Fasting 93 mg/dL (60-99); HDL Cholesterol 58 mg/dL (>40); Iron 68 mcg/dL (45-160); LDL Cholesterol Calculated 131 mg/dL (<100); Percent Iron Saturation 26 % (15-50); Potassium 4.2 mmol/L (3.3-5.1); Sodium 141 mmol/L (135-145); TSH reflex Free T4 2.88 uIU/mL (0.32-4.0); Total Iron Binding Capacity 266 mcg/dL (228-428); Total Protein 7.5 g/dL (6.5-8.0); Triglycerides 104 mg/dL (<150); Unsaturated Iron Binding 198 ug/dL
[2024-07-17 14:50] LABS: Erythrocyte Sedimentation Rate 51 MM/HR (0-15)
[2024-07-17 17:12] LABS: Bacteria Urine None Seen (None Seen); RBC Urine 0-2 /HPF (0-2); WBC Urine 0-5 /HPF (0-5)
[2024-07-18 04:03] LABS: CRP High Sensitivity 17.9 mg/L
[2024-07-18 07:49] LABS: HIV AB/AG Nonreactive (Nonreactive); HIV Num 1 0.05 S/CO (0.00-0.99)
[2024-07-18 08:33] LABS: Syphilis Screen Nonreactive (Nonreactive)
== END 2024-07-17 10:18 | disposition home or self-care (01) ==
LOC: HO.WFDLDS 10:17
PROVIDERS: PCP Family Medicine; Visit Provider Nurse Practitioner Family
DX: Z00.00 Encounter for general adult medical examination without abnormal findings (principal); S22.32XA Fracture of one rib, left side, initial encounter for closed fracture; W19.XXXA Unspecified fall, initial encounter; R73.01 Impaired fasting glucose; D64.9 Anemia, unspecified; Z11.3 Encounter for screening for infections with a predominantly sexual mode of transmission; R42 Dizziness and giddiness; R07.81 Pleurodynia
CPT/HCPCS: 36415; 71111; 80053; 80061; 81001; 83036; 83540; 84443; 85025; 85045; 85652; 86141; 86780; 87389; 99212

== ENCOUNTER 2024-07-17 11:17 | Outpatient (REF) | payer MEDICARE, SELFPAY | END 2024-07-17 11:18 | disposition home or self-care (01) | LOC: HO.XRAY 11:17 | PROVIDERS: PCP Family Medicine; Visit Provider Nurse Practitioner Family | DX: Z13.89 Encounter for screening for other disorder (principal) ==

== ENCOUNTER → 2024-07-17 11:24 | Outpatient (BNV) | payer MEDICARE, SELFPAY | PROVIDERS: PCP Family Medicine; Visit Provider Radiology Diagnostic Radiology | DX: S22.32XA Fracture of one rib, left side, initial encounter for closed fracture (principal) | CPT/HCPCS: 71111 ==

== ENCOUNTER 2024-07-26 09:32 | Outpatient (AMB) | payer MEDICARE, SELFPAY ==
--- NOTE | 2024-07-26 09:41 | MHC.PC.OV ---
Vital Signs 07/26/24 09:52 Height 5 ft 9 in Weight 206 lb 4 oz BMI 30.5 BP 136/64 Blood Pressure Location Rt brachial Position Sitting Respiration 14 Pulse 54 Pulse Source Pulse Oximeter Temp 97.4 F Temp Source Oral Pulse Oximetry (%) 96 Oxygen Delivery Method Room Air Intake Visit Reasons: follow-up dizziness Intake Note: Patient is scheduled for follow- up for dizziness and patient is experiencing shortness of breath and complains that it is frequent Information Interpreted: clinical only Allergies Sulfacet-R Allergy (Severe, Uncoded 07/26/24 09:45) sick stomach Medication List - Last Reconciled 07/26/24 by Fab Vale MD atenolol 50 mg PO DAILY 90 days furosemide 10 mg (1/2 x 20 mg) PO DAILY PRN 30 days hydroxyzine HCl 25 mg PO BEDTIME 30 days ibuprofen 600 mg PO Q8H PRN 30 days losartan 50 mg PO DAILY tramadol 50 mg PO BID PRN Tobacco use date assessed: 07/26/24 Fall risk assessment: 1 Fall in past year Last assessed Fall Risk: 07/26/24 Dental Screening Dental Screen Date: 07/26/24 Did you have a dental visit in the last 12 months?: No Did you have a dental problem in the last 6 months where you did not have access to dental care?: No Was dental information given to patient?: No HPI follow-up dizziness HPI Details 74 y/o male presents to f/u dizziness, postural changes, mental status change and dyskinesia as well as worsening unsteady gait. Labs drawn 07/17/24. ESR 51. CRP 17.9. Had ordered a MRI about a month ago. Recently had a fall and reports ongoing rib pain. Pt notes he continues to smoke. [facility] Medical History (Updated 07/17/24 @ 11:00 by LANDRY Anderson-) Acute adjustment disorder Essential hypertension Hyperlipidemia Elevated fasting blood sugar Anemia Swelling of lower extremity Nicotine dependence, cigarettes, uncomplicated Surgical History History of tonsillectomy Social History Housing: Apartment Alcohol intake: current Alcohol intake frequency: a few times a month Alcohol type: beer Patient Tobacco Use Status: Current everyday Tobacco user Tobacco use type: Cigarette Years Smoked: (onset 15yo, 1.5ppd x 58yrs, 70+PYH) e-Cigarette/Vaping Use: Never Used Second Hand Smoke Exposure: No service: No Current occupational status: retired Current occupational exposures/hazards: No Cognitive needs: No Hearing needs: No Vision needs: Yes (Patient wears glasses) Questionnaire PHQ-9 Over the last 2 weeks, how often have you been bothered by any of the following problems? 1. Little interest or pleasure in doing things: not at all 2. Feeling down, depressed, or hopeless: not at all 3. Trouble falling or staying asleep, or sleeping too much: not at all 4. Feeling tired or having little energy: not at all Source: Developed by Drs. Harsh Casey, Corinne Monroe, Al Dennis and colleagues, with an educational oliva from [employer]. Thrive Questionnaire Date Thrive assessed: 07/26/24 I am a: Patient What is your living situation today?: I have a steady place to live Do you have trouble paying for medicines?: No Do you have trouble getting transportation to medical appointments?: No Do you have trouble paying your heating and electricity bill?: No Do you have trouble taking care of your child, family member or friend?: No Do you have trouble with day-to-day activities such as bathing, preparing meals, shopping, managing finances, etc.?: No Are you currently unemployed and looking for a job?: No Are you interested in more education?: No Please select the resources that you would like help with: None THRIVE Score: 0 OMAYRA-7 AMB Questionnaire OMAYRA-7 Date OMAYRA - 7 assessed: 07/26/24 Source: Developed by Drs. Harsh Casey, Corinne Monroe, Al Dennis and colleagues, with an educational oliva from [employer]. OMAYRA-7 Assessment Billing OMAYRA-7 Assessment Tool: OMAYRA-7 Assessment 10554 Review of Systems Const Denies chills, Denies fatigue, Denies fever(s), Denies headache(s) and Denies weakness ENT Reports dizziness and Denies headache(s) Card Denies dyspnea Resp Denies cough, Denies dyspnea, Denies wheezing and Denies other (shortness of breath) Musc Denies numbness and Denies tingling Neuro Reports dizziness, Denies headache(s), Denies numbness, Denies tingling, Reports tremor(s) and Denies weakness Psych Denies anxiety and Denies depression Endo Denies fatigue Aller/Immun Denies wheezing Physical exam (Primary Care) Vital Signs: Last Vital Signs Temp 97.4 F 07/26/24 09:52 Pulse 54 07/26/24 09:52 Resp 14 07/26/24 09:52 BP 136/64 07/26/24 09:52 Pulse Ox 96 07/26/24 09:52 Oxygen Delivery Method Room Air 07/26/24 09:52 BMI result Body Mass Index 30.5 Tobacco/Smoking Status: Tobacco use Status Tobacco use date assessed 07/26/24 07/26/24 09:53 Patient Tobacco Use Status Current everyday Tobacco 07/26/24 09:42 Tobacco use type Cigarette 07/26/24 09:42 e-Cigarette/Vaping Use Never Used 07/26/24 09:42 Thrive Assessment: Date of Thrive Assessment Date Thrive assessed 07/26/24 07/26/24 09:53 Const General: well developed; No acute distress Nutritional Appearance: well nourished Orientation/consciousness: patient oriented x3 HENMT Head: Yes normocephalic and Yes atraumatic Eyes General: appearance normal, both eyes and all related structures Pupils: Equal, round and reactive pupils present EOM: EOMs intact bilaterally Resp Effort & Inspection: normal respiratory effort Neuro General: patient oriented x3 and gait normal Cranial nerves: Yes Equal, round and reactive pupils present Psych Affect: normal affect Coding Level of Care Code Est Pt Level 4 (92298) Diagnoses Dizziness R42 Change in mental status R41.82 Dyskinesia G24.9 Fall, initial encounter W19.XXXA Encounter type: initial encounter Rib pain R07.81 Smoker F17.200 Additional Codes OMAYRA-7 Assessment Billing - OMAYRA-7 Assessment Tool: OMAYRA-7 Assessment 64319 ([id number]) Assessment & Plan Assessment & Plan (1) Dizziness: Code(s): R42 - Dizziness and giddiness Category: Medical (2) Change in mental status: Code(s): R41.82 - Altered mental status, unspecified Category: Medical (3) Dyskinesia: Code(s): G24.9 - Dystonia, unspecified Category: Medical (4) Fall: Code(s): W19.XXXA - Unspecified fall, initial encounter Category: Medical Qualifiers: Encounter type: initial encounter Qualified Code(s): W19.XXXA - Unspecified fall, initial encounter (5) Rib pain: Code(s): R07.81 - Pleurodynia Category: Medical (6) Smoker: Code(s): F17.200 - Nicotine dependence, unspecified, uncomplicated Category: Social Hx Plan Ongoing?dizziness,?mental?status?changes,?dyskinesia?in?tremor. Had?referred?him?to?Neurology?but?he?had?declined?it.??Had?discussion?with?patient?and?he?says?he?will?accept?the?referral. ?Will resend?referral. Had?also?ordered?MRI.??Apparently?he?missed?his?appointment.??Will?ask?medical?clinical trial assistant?to?help?get?him?scheduled. Significantly?elevated?inflammatory?markers. Had?referred?him?to?Rheumatology?in?2021. Inflammatory?markers?still?elevated. Referring?him?back?to?Rheumatology Patient?has?some?shortness?of?breath?after?fall?with?rib?fracture. Also?smoker; 1?pack?per?day. Encouraged smoking?cessation He?is?having?some?difficulty?when?lying?in?his?recliner?which?keeps?him?partially?folded?in?this?giving?him?trouble?with?breathing. We?discussed?changing?his?position?with?pillows. He?will?let?me?know?if?he?is?still?having?difficulty.
[2024-07-26 09:52] VITALS: BP 136/64; PULSE 54; RESP 14; TEMP 36.3; O2SAT 96; BMI 30.5
== END 2024-07-26 10:47 | disposition home or self-care (01) ==
LOC: HO.HMCFM 09:33
PROVIDERS: PCP Family Medicine; Visit Provider Family Medicine
DX: R42 Dizziness and giddiness (principal); R41.82 Altered mental status, unspecified; G24.9 Dystonia, unspecified; W19.XXXA Unspecified fall, initial encounter; R07.81 Pleurodynia; F17.200 Nicotine dependence, unspecified, uncomplicated

== ENCOUNTER → 2024-07-26 09:32 | Outpatient (BNVA) | payer MEDICARE, SELFPAY | PROVIDERS: PCP Family Medicine; Visit Provider Family Medicine | DX: R42 Dizziness and giddiness (principal); R41.82 Altered mental status, unspecified; G24.9 Dystonia, unspecified; R07.81 Pleurodynia; F17.200 Nicotine dependence, unspecified, uncomplicated; Z71.6 Tobacco abuse counseling | CPT/HCPCS: 96127; 99212 ==

== ENCOUNTER 2024-07-30 10:19 | Outpatient (REF) | payer MEDICARE, SELFPAY ==
--- NOTE | ~2024-07-30 | MR_ITS ---
EXAMINATION: MR BRAIN WITHOUT CONTRAST CLINICAL INFORMATION: Tremors, unspecified. COMPARISON: None available. TECHNIQUE: MRI of the brain was obtained using routine sequences without contrast. FINDINGS: Limited by patient's motion artifact. Limited exam secondary to lack of susceptibility signal sequences. No restricted diffusion. No acute intracranial hemorrhage, mass effect, midline shift, hydrocephalus or herniation. Bilateral multifocal patchy and punctate deep periventricular white matter hyperintense T2 FLAIR signal involving centrum semiovale and shaikh radiata and wendy. Multifocal old lacunar infarcts, basal ganglia and cerebellar hemispheres. Prominence of the extra-axial CSF spaces cerebral sulci and ventricles. Flow-void signal within the main cerebral vessels is normal. No signal abnormality within the hippocampi. Sellar/suprasellar region demonstrated no signal abnormality or masses. Craniocervical junction is intact and normal position of the cerebellar tonsils. There is a periodontal findings formation resulting in ventral indentation to the thecal sac. 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 Global cerebral atrophy. . Electronically signed by: Amadou Reyna MD 07/31/2024 07:31 AM EDT
== END 2024-07-30 10:20 | disposition home or self-care (01) ==
LOC: HO.MRI 10:19
PROVIDERS: PCP Family Medicine; Visit Provider Family Medicine
DX: G24.9 Dystonia, unspecified (principal); R41.82 Altered mental status, unspecified; R26.81 Unsteadiness on feet; R42 Dizziness and giddiness
CPT/HCPCS: 70551

== ENCOUNTER → 2024-07-30 10:23 | Outpatient (BNV) | payer MEDICARE, SELFPAY | PROVIDERS: PCP Family Medicine; Visit Provider Radiology Diagnostic Radiology | DX: G31.89 Other specified degenerative diseases of nervous system (principal); R90.82 White matter disease, unspecified | CPT/HCPCS: 70551 ==

== ENCOUNTER 2024-08-30 10:53 | Outpatient (AMB) | payer MEDICARE, SELFPAY ==
--- NOTE | 2024-08-30 10:58 | MHC.PC.OV ---
Vital Signs 08/30/24 11:00 Height 5 ft 9 in Weight 195 lb BMI 28.8 BP 130/80 Blood Pressure Location Rt brachial Position Sitting Respiration 14 Pulse 48 L Pulse Source Pulse Oximeter Temp 97.6 F Temp Source Oral Pulse Oximetry (%) 96 Oxygen Delivery Method Room Air Intake Visit Reasons: neurological follow up/ medication request Intake Note: patient is scheduled to request Viagra script and to follow up on neurological issues Hat Finisher Required: No Allergies Sulfacet-R Allergy (Severe, Uncoded 07/26/24 09:45) sick stomach Medication List - Last Reconciled 08/30/24 by Fab Vale MD atenolol 50 mg PO DAILY 90 days furosemide 10 mg (1/2 x 20 mg) PO DAILY PRN 30 days hydroxyzine HCl 25 mg PO BEDTIME 30 days ibuprofen 600 mg PO Q8H PRN 30 days losartan 50 mg PO DAILY tramadol 50 mg PO BID PRN Tobacco use date assessed: 07/26/24 Dental Screening Dental Screen Date: 07/26/24 HPI neurological follow up/ medication request HPI Details 74 y/o male presents to f/u MRI for dizziness, mental status change, tremor and dyskinesias. Had referred to Neurology. 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 Global cerebral atrophy. Labs drawn 07/17/24. Triglyceride 104. TC 209. LDL 131. HDL 58. Labs had shown high ESR and CRP. HPI Comments History of Present Illness Details Documentation assistance for Fab Vale MD, was provided by Ganesh Madrigal,? Boiler Control Technician on 08/30/2024 at 11:10 AM YOSSI. Maria Fernanda, Dr. Vale, have read, observed, and verified documentation. ?? [facility] Medical History (Updated 07/17/24 @ 11:00 by Radha Guadalupe, LANDRY-) Acute adjustment disorder Essential hypertension Hyperlipidemia Elevated fasting blood sugar Anemia Swelling of lower extremity Nicotine dependence, cigarettes, uncomplicated Surgical History History of tonsillectomy Social History Housing: Apartment Alcohol intake: current Alcohol intake frequency: a few times a month Alcohol type: beer Patient Tobacco Use Status: Current everyday Tobacco user Tobacco use type: Cigarette Years Smoked: (onset 15yo, 1.5ppd x 58yrs, 70+PYH) e-Cigarette/Vaping Use: Never Used Second Hand Smoke Exposure: No service: No Current occupational status: retired Current occupational exposures/hazards: No Cognitive needs: No Hearing needs: No Vision needs: Yes (Patient wears glasses) Questionnaire PHQ-9 Over the last 2 weeks, how often have you been bothered by any of the following problems? 3. Trouble falling or staying asleep, or sleeping too much: not at all 9. Thoughts that you would be better off or of hurting yourself in some way: not at all Source: Developed by Drs. Harsh Casey, Corinne Monroe, Al Dennis and colleagues, with an educational oliva from [employer]. Thrive Questionnaire Date Thrive assessed: 08/27/24 I am a: Patient What is your living situation today?: I have a steady place to live Within the past 12 months, did the food you bought not last and you didn't have the money to get more?: Never true Within the past 12 months, did you worry whether your food would run out before you got money to buy more?: Never true Do you have trouble paying for medicines?: No Do you have trouble getting transportation to medical appointments?: No Do you have trouble paying your heating and electricity bill?: No Do you have trouble taking care of your child, family member or friend?: No Do you have trouble with day-to-day activities such as bathing, preparing meals, shopping, managing finances, etc.?: No Are you currently unemployed and looking for a job?: No Are you interested in more education?: No Please select the resources that you would like help with: None Currently or been in a relationship where the following occur: No concerns reported THRIVE Score: 0 AUDIT C Alcohol Use Questionnaire (AUDIT-C) 1. How often do you have a drink containing alcohol?: Monthly or less 2. How many drinks containing alcohol do you have on a typical day when you are drinking?: 1 or 2 3. How often do you have six or more drinks on one occasion?: Never Total Score: 1 OMAYRA-7 AMB Questionnaire OMAYRA-7 Date OMAYRA - 7 assessed: 07/26/24 Feeling nervous, anxious, or on edge: 0 = Not at all Not being able to stop or control worryin = Not at all Worrying too much about different things: 0 = Not at all Trouble relaxin = Not at all Being so restless that it is hard to sit still: 0 = Not at all Becoming easily annoyed or irritable: 0 = Not at all Feeling afraid as if something awful might happen: 0 = Not at all Total OMAYRA-7 score (0-4 normal; 5-9 mild; 10-14 moderate; 15-21 severe): 0 Source: Developed by Drs. Harsh Casey, Corinne Monroe, Al Dennis and colleagues, with an educational oliva from [employer]. Review of Systems Const Denies chills, Denies fatigue, Denies fever(s), Denies headache(s) and Denies weakness ENT Denies dizziness and Denies headache(s) Card Denies dyspnea Resp Denies cough, Denies dyspnea, Denies wheezing and Denies other (shortness of breath) Musc Denies numbness and Denies tingling Neuro Denies dizziness, Denies headache(s), Denies numbness, Denies tingling and Denies weakness Psych Denies anxiety and Denies depression Endo Denies fatigue Aller/Immun Denies wheezing Physical exam (Primary Care) Vital Signs: Last Vital Signs Temp 97.6 F 08/30/24 11:00 Pulse 48 L 08/30/24 11:00 Resp 14 08/30/24 11:00 BP 130/80 08/30/24 11:00 Pulse Ox 96 08/30/24 11:00 Oxygen Delivery Method Room Air 08/30/24 11:00 BMI result Body Mass Index 28.8 Tobacco/Smoking Status: Tobacco use Status Tobacco use date assessed 07/26/24 08/30/24 11:04 Patient Tobacco Use Status Current everyday Tobacco 08/30/24 11:04 Tobacco use type Cigarette 08/30/24 11:04 e-Cigarette/Vaping Use Never Used 08/30/24 11:04 Thrive Assessment: Date of Thrive Assessment Date Thrive assessed 08/27/24 08/30/24 11:04 Currently or been in a relationship where the following occur: No concerns reported Const General: well developed; No acute distress Nutritional Appearance: well nourished Orientation/consciousness: patient oriented x3 HENMT Head: Yes normocephalic and Yes atraumatic Eyes General: appearance normal, both eyes and all related structures Pupils: Equal, round and reactive pupils present EOM: EOMs intact bilaterally Resp Effort & Inspection: normal respiratory effort Neuro General: patient oriented x3 and gait normal Cranial nerves: Yes Equal, round and reactive pupils present Psych Affect: normal affect Coding Level of Care Code Est Pt Level 4 (85859) Diagnoses Tremor R25.1 Change in mental status R41.82 Dyskinesia G24.9 Dizziness R42 Hyperlipidemia E78.5 Assessment & Plan Assessment & Plan (1) Tremor: Code(s): R25.1 - Tremor, unspecified Category: Medical (2) Change in mental status: Code(s): R41.82 - Altered mental status, unspecified Category: Medical (3) Dyskinesia: Code(s): G24.9 - Dystonia, unspecified Category: Medical (4) Dizziness: Code(s): R42 - Dizziness and giddiness Category: Medical (5) Hyperlipidemia: Code(s): E78.5 - Hyperlipidemia, unspecified Category: Medical Plan Patient?has?had?changes?in?mentation?and?tremors/dyskinesia MRI?shows?white?matter?changes?likely?microvascular occlusion. Also?shows?global?atrophy Labs?also?have?shown?high?erythrocyte?sedimentation?rate?and?CRP. He?has?an?appointment?with?rheumatology?in?April Labs?also?show?elevated?LDL?cholesterol Will?start?him?on?atorvastatin?and?also?baby?aspirin Patient?has?been?referred?to?neurology?and?they?attempted?to?contact?him?but?were?unable?to?reach?him?to?schedule?an?appointment.??I?am?asking?my?office?to?help?facilitate?scheduling?appointment. Medications: New atorvastatin 20 mg PO BEDTIME 90 tabs 3RF 90 days sildenafil administer 30 minutes to 4 hours before activity 50 mg PO DAILY PRN 10 tabs 4RF sexual activity 30 days aspirin 81 mg PO DAILY 90 tabs 4RF 90 days
[2024-08-30 11:00] VITALS: BP 130/80; PULSE 48; RESP 14; TEMP 36.4; O2SAT 96; BMI 28.8
== END 2024-08-30 11:35 | disposition home or self-care (01) ==
LOC: HO.HMCFM 10:54
PROVIDERS: PCP Family Medicine; Visit Provider Family Medicine
DX: R25.1 Tremor, unspecified (principal); R41.82 Altered mental status, unspecified; R42 Dizziness and giddiness; E78.5 Hyperlipidemia, unspecified

== ENCOUNTER → 2024-08-30 10:53 | Outpatient (BNVA) | payer MEDICARE, SELFPAY | PROVIDERS: PCP Family Medicine; Visit Provider Family Medicine | DX: R25.1 Tremor, unspecified (principal); R41.82 Altered mental status, unspecified; R42 Dizziness and giddiness; E78.5 Hyperlipidemia, unspecified | CPT/HCPCS: 99212 ==

== ENCOUNTER 2025-01-03 09:23 | Outpatient (REF) | payer MEDICARE, SELFPAY ==
[2025-01-03 14:34] LABS: Folate 4.8 ng/mL (> or = 4.0); Vitamin B12 278 pg/mL (200-900)
[2025-01-09 14:14] LABS: Vitamin D 25-OH, D2 <4 ng/mL; Vitamin D 25-OH, D3 18 ng/mL; Vitamin D 25-OH, Total 18 ng/mL (30-100)
[2025-01-14 07:22] LABS: Anti Nuclear Antibody Screen POSITIVE (NEGATIVE); Anti Nuclear Antibody Titer 1:640 titer
== END 2025-01-03 09:24 | disposition home or self-care (01) ==
LOC: HO.HKASLDS 09:23
PROVIDERS: PCP Family Medicine; Visit Provider Psychiatry & Neurology Neurology
DX: G25.5 Other chorea (principal); R06.83 Snoring; F17.210 Nicotine dependence, cigarettes, uncomplicated; Z01.84 Encounter for antibody response examination; Z13.21 Encounter for screening for nutritional disorder; Z71.6 Tobacco abuse counseling
CPT/HCPCS: 36415; 82306; 82607; 82746; 84443; 85652; 86038; 86039; 99202

== ENCOUNTER 2025-01-03 09:23 | Outpatient (AMB) | payer MEDICARE, SELFPAY ==
--- NOTE | 2025-01-03 09:25 | MHC.OFFVIS ---
Vital Signs 01/03/25 09:26 Height 5 ft 9 in Weight 175 lb 6 oz BMI 25.9 BP 136/70 Blood Pressure Location Rt brachial Position Sitting Pulse 48 L Pulse Source Pulse Oximeter Pulse Oximetry (%) 96 Oxygen Delivery Method Room Air Intake Visit Reasons: INP-Dizzines and giddiness / Dystonia Intake Note: Dystonia, Dizziness and Giddiness Medical Transcription Editor Required: No Accompanied by: Friend Allergies Sulfacet-R Allergy (Severe, Uncoded 01/03/25 09:25) sick stomach HPI Comments Details: 74y/o male is referred here for evaluation of abnormal involuntary movements and poor balance He denies dizziness. He started noticing abnormal movements- fidgetiness about 10 years ago. He can control it temporily and is mostly in his hands. The movements does not bother him and is not sure if it has progressed. It is more when is nervous No family/o Huntingtons, parkinsons. No exposure to antipsychotics he has occasional falls. He reports snoring and nocturia [facility] Medical History (Updated 01/03/25 @ 09:53 by Griselda Kyle MD) Nocturia Snoring Chorea Acute adjustment disorder Essential hypertension Hyperlipidemia Elevated fasting blood sugar Anemia Swelling of lower extremity Nicotine dependence, cigarettes, uncomplicated Surgical History History of tonsillectomy Social History Housing: Apartment Alcohol intake: current Alcohol intake frequency: a few times a month Alcohol type: beer Patient Tobacco Use Status: Current everyday Tobacco user Tobacco use type: Cigarette Years Smoked: (onset 15yo, 1.5ppd x 58yrs, 70+PYH) e-Cigarette/Vaping Use: Never Used Second Hand Smoke Exposure: No service: No Current occupational status: retired Current occupational exposures/hazards: No Cognitive needs: No Hearing needs: No Vision needs: Yes (Patient wears glasses) Physical Exam Vital Signs: Last Vital Signs Pulse 48 L 01/03/25 09:26 BP 136/70 01/03/25 09:26 Pulse Ox 96 01/03/25 09:26 Oxygen Delivery Method Room Air 01/03/25 09:26 BMI result Body Mass Index 25.9 Const General: cooperative, comfortable and no acute distress Nutritional Appearance: average body habitus Orientation/consciousness: patient oriented x3 Eyes Pupils: Equal, round and reactive pupils present Neuro Other: generalized chorea wide based gait - mild off balance No perioral or tongue movements General: patient oriented x3, moves all extremities and no focal motor deficits Cranial nerves: Yes Facial sensation intact/muscles of mastication intact, Yes Equal, round and reactive pupils present, Yes Bilaterally intact EOM present, Yes Nystagmus not present, Yes Normal facial strength present, Yes Midline tongue present and Yes Ability to bilaterally elevate shoulders present Cognition (Neuro): normal cognition Motor exam (neuro): 5/5 motor strength present throughout and Normal motor muscle tone present throughout Deep tendon reflexes (DTR's): Right triceps reflex intensity grade: 1+, Left triceps reflex intensity grade: 1+, Rt Biceps (C5, C6): 1+, Left biceps reflex intensity grade: 1+, Right brachioradialis reflex intensity grade: 1+, Left brachioradialis reflex intensity grade: 1+, Right patellar reflex intensity grade: 1+ and Left patellar reflex intensity grade: 1+ Coordination: [id number] test normal Assessment & Plan Assessment & Plan (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 history) Code(s): G25.5 - Other chorea Category: Medical (2) Snoring: Code(s): R06.83 - Snoring Category: Medical Plan He declines testing for Huntingtons I will check his thyroid, GIOVANNY B12 D ESR Will consider adding risperdal or haldol if his chorea affects his ADLs Home sleep test to r/o sleep apnea SMoking cessation discussed Orders: Orders RT home sleep study Today G25.5 - Other chorea, R06.83 - Snoring, R35.1 - Nocturia Erythrocyte Sedimentation Rate Today G25.5 - Other chorea, R06.83 - Snoring Vitamin B12 and Folate Today G25.5 - Other chorea, R06.83 - Snoring Vitamin D 25-OH (D2 and D3) Today G25.5 - Other chorea, R06.83 - Snoring TSH reflex Free T4 Today G25.5 - Other chorea, R06.83 - Snoring GIOVANNY Reflex Titer and Pattern Today G25.5 - Other chorea, R06.83 - Snoring Coding Level of Care Code New Pt Level 4 (70162) Diagnoses 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
[2025-01-03 09:26] VITALS: BP 136/70; PULSE 48; O2SAT 96; BMI 25.9
== END 2025-01-03 10:44 | disposition home or self-care (01) ==
LOC: HO.HSMS 09:24
PROVIDERS: PCP Family Medicine; Visit Provider Psychiatry & Neurology Neurology
DX: G25.5 Other chorea (principal); R06.83 Snoring
CPT/HCPCS: 99204